=== PATIENT | female | born 1950 | race Caucasian/White ===

== ENCOUNTER 2017-02-06 10:15 | Inpatient (IN) | payer MEDICARE ==
[~2017-02-06] VITALS: Ht 167.6 cm; Wt 70.3 kg
[2017-02-06] MEDS ORDERED: Ipratropium 0.02% Inh Soln 2.5ml UD HHN ONE (10:45)
[2017-02-06] MEDS ORDERED: Albuterol ud Inhalation HHN ONE (10:45)
[2017-02-06 10:56] VITALS: BP 121/79
--- NOTE | 2017-02-06 11:47 | Diagnostic Imaging Report ---
Indication: Dyspnea Comparison: None A single view chest radiograph was obtained. Findings: There is a right chest port present. The tip is within the SVC. Heart size is normal. There are interstitial and other ill-defined opacities within the lungs bilaterally especially in the upper lobes nonspecific in nature. There are no prior studies for comparison. The possibility of pneumonia is not excluded involving the upper lobes. Bones are osteopenic. Impression: Acuity indeterminate ill-defined densities within the upper lobes. Findings could represent some ill-defined scarring of the lungs. Possibility of pneumonia not excluded. Please correlate clinically. Right chest port noted in good position.
[2017-02-06 11:49] LABS: BASOPHILS % (AUTO) 0.5 % (0.0-2.0); EOSINOPHILS % (AUTO) 3.8 % (0.0-3.0); LYMPHOCYTES % (AUTO) 8.6 % (20.0-45.0); MEAN CORPUSCULAR HEMOGLOBIN 31.4 PG (27.0-31.0); MEAN CORPUSCULAR HGB CONC 32.7 G/DL (32.0-36.0); MEAN CORPUSCULAR VOLUME 96 FL (80-99); MEAN PLATELET VOLUME 4.7 FL (6.5-10.1); MONOCYTES % (AUTO) 6.4 % (1.0-10.0); NEUTROPHILS % (AUTO) 80.8 % (45.0-75.0); PLATELET COUNT 388 K/UL (150-450); RED CELL DISTRIBUTION WIDTH 11.6 % (11.6-14.8); WHITE BLOOD COUNT 6.3 K/UL (4.8-10.8)
[2017-02-06 11:58] LABS: ALANINE AMINOTRANSFERASE 24 U/L (3-33); ALBUMIN/GLOBULIN RATIO 0.9 (1.0-2.7); ANION GAP 12 (5-15); ASPARTATE AMINO TRANSFERASE 15 U/L (5-40); CALCIUM 9.7 mg/dL (8.6-10.2); CARBON DIOXIDE 26 mEQ/L (20-30); CHLORIDE 97 mEQ/L (98-107); CREATININE 1.1 mg/dL (0.5-0.9); GLOMERULAR FILTRATION RATE 49.9 mL/min (>60); HEMOLYSIS 1; POTASSIUM 3.8 mEQ/L (3.4-4.9); PROTHROMBIN TIME 10.7 SEC (9.30-11.50); SODIUM 135 mEQ/L (135-145); TOTAL PROTEIN 6.7 g/dL (6.6-8.7)
[2017-02-06] MEDS ORDERED: BENICAR HCT 401 EACH ORAL (12:10)
[2017-02-06] MEDS ORDERED: ABILIFY10 MG ORAL (12:13)
[2017-02-06] MEDS ORDERED: PREMARIN VAG CR45 GM PV (12:13)
[2017-02-06] MEDS ORDERED: HYDROCHLOROTHIA25 MG ORAL (12:13)
[2017-02-06] MEDS ORDERED: LAMICTAL200 MG ORAL (12:13)
[2017-02-06] MEDS ORDERED: LEVAQUIN250 M1 ORAL (12:13)
[2017-02-06] MEDS ORDERED: cefTRIAXone 1 GM in NS 55 ML IVPB ONE (12:15)
[2017-02-06] MEDS ORDERED: Azithromycin 500 MG in D5W 275 ML IVPB ONE (12:15)
[2017-02-06 13:05] VITALS: BP 109/71
[2017-02-06 13:22] LABS: APPEARANCE,URINE CLEAR; KETONES,URINE NEGATIVE (NEGATIVE); LEUKOCYTE ESTERASE ,URINE NEGATIVE (NEGATIVE); NITRITE,URINE NEGATIVE (NEGATIVE); PH,URINE 7 (4.5-8.0); PROTEIN,URINE NEGATIVE (NEGATIVE); UROBILINOGEN,URINE NORMAL MG/DL (0.0-1.0)
--- NOTE | 2017-02-06 13:48 | History & Physical ---
History and Physical History & Physicial dict pneumonia metastatic ovarian cancer - s/p surg, chemo, in remission HTN CAD - not symptomatic Depression ID consult CT chest Abx MU MONAHAN Feb 06, 2017 13:48
[2017-02-06] MEDS ORDERED: Azithromycin 500mg Inj IV ONE (14:23)
[2017-02-06 14:40] VITALS: BP 106/63
--- NOTE | 2017-02-06 14:59 | Diagnostic Imaging Report ---
Indication: Chest pain Technique: Continuous helical transaxial imaging of the chest was obtained from the thoracic inlet to the upper abdomen. High-resolution reconstructions were also performed. No intravenous contrast was administered. Coronal 2-D reformats were also obtained. Total Dose length Product (DLP): [address] Dose Index Volume (CTDIvol): 0.15, 21.4 mGy Comparison: none Findings: Ill-defined infiltrates are present within the upper lobes suspicious for pneumonia. There is no interstitial fibrosis per se. There are some mild reticular densities at the lung bases nonspecific in nature. This could represent mild subsegmental atelectasis which is probably most likely. No pleural effusions are seen. There is no lymphadenopathy identified. There is a right chest port present. The tip terminates within the SVC in good position. Consultation of aorta and coronary calcifications are also noted. Visualized part of the upper abdomen is unremarkable. Impression: Patchy upper lobe infiltrates. Consider pneumonia. No interstitial fibrosis demonstrated. Mild atherosclerotic vascular disease Right chest port in good position The CT scanner at [facility] is accredited by the [employer] and the scans are performed using dose optimization techniques as appropriate to a performed exam including Automatic Exposure control.
--- NOTE | 2017-02-06 15:04 | Emergency Room Report ---
History of Present Illness General Chief Complaint: Dyspnea/Respdistress Source: Patient Present Illness HPI The patient presents with history of pneumonia. She's been treated with 3 different antibiotics. It was Biaxin 1 was [place] is Levaquin. She still has a cough. They consider the possibility of tuberculosis however no Gold test was performed. The cough is nonproductive or minimally productive with clear phlegm. She denies any night sweats. She has some weakness. She does get out of breath easily. She denies cardiac problems. She had a CT scan of her chest done 3 days ago at her private doctor's office. She's got a CT however she only brought chest x-ray. The patient has metastatic ovarian cancer. She is anxious about chronicity of cough. Allergies: Coded Allergies: No Known Allergies (Unverified , 02/06/17) Patient History Past Medical History: see triage record Past Surgical History: other - portacath, MINE PATROL surg Social History: Denies: smoking Social History Narrative at home Reviewed Nursing Documentation: PMH: Agreed, PSxH: Agreed Nursing Documentation-PMH Past Medical History: No History, Except For Hx Cardiac Problems: No - OVARIAN CANCER ,PNA,DEPRESSION Hx Hypertension: Yes Review of Systems All Other Systems: negative except mentioned in HPI Physical Exam Vital Signs Date Time Temp Pulse Resp B/P (MAP) Pulse Ox O2 Delivery O2 Flow Rate FiO2 02/06/17 10:21 98.2 91 18 132/82 98 Room Air 02/06/17 11:33 98 02/06/17 13:05 2.0 Sp02 EP Interpretation: reviewed, normal General Appearance: no apparent distress, alert, GCS 15, non-toxic, Chronically Ill Head: normocephalic Eyes: bilateral eye PERRL, bilateral eye conjunctivae pale ENT: moist mucus membranes Neck: supple Respiratory: lungs clear, normal breath sounds, other - portacath R, some paroxysms of coughing Cardiovascular #1: regular rate, rhythm, edema Cardiovascular #2: 2+ radial (R) Gastrointestinal: normal inspection, normal bowel sounds, non tender, no mass, non-distended Musculoskeletal: back normal, gait/station normal, normal range of motion, no calf tenderness Neurologic: alert, oriented x3, grossly normal Psychiatric: anxious Skin: warm/dry, other - sallo Medical Decision Making Diagnostic Impression: Primary Impression: Pneumonia Qualified Codes: J18.9 - Pneumonia, unspecified organism Additional Impressions: Dyspnea Qualified Codes: R06.00 - Dyspnea, unspecified Bronchospasm Eosinophilia ER Course Patient presents with persistent cough post antibiotic treatment. Ddx: TB, persistent pneumonia, resistant organism, bordatella, occult CHF, allergic process, bronchospasm, PE, metastatic disease, other atypical pneumonias amongst others. She is dyspneic and feels weak. Evaluation to exclude cardiac cause is paramount. Also, need to check CXR and labs. Patient will be given IV hydration and beta agents. Patient somewhat improved with beta agents. CXR diffuse increase. EKG unremarkable. Labs with normal WBC, but eosinophilia. Mild renal insufficiency. Treated with codiene. Patient still with dyspnea with minimal exertion and paroxysms of cough. Admit med Dr. Kaur. Laboratory Tests Test 02/06/17 11:30 02/06/17 13:00 02/06/17 17:35 02/07/17 00:00 White Blood Count 6.3 K/UL (4.8-10.8) Red Blood Count 3.80 M/UL (4.20-5.40) L Hemoglobin 12.0 G/DL (12.0-16.0) Hematocrit 36.6 % (37.0-47.0) L Mean Corpuscular Volume 96 FL (80-99) Mean Corpuscular Hemoglobin 31.4 PG (27.0-31.0) H Mean Corpuscular Hemoglobin Concent 32.7 G/DL (32.0-36.0) Red Cell Distribution Width 11.6 % (11.6-14.8) Platelet Count 388 K/UL (150-450) Mean Platelet Volume 4.7 FL (6.5-10.1) L Neutrophils (%) (Auto) 80.8 % (45.0-75.0) H Lymphocytes (%) (Auto) 8.6 % (20.0-45.0) L Monocytes (%) (Auto) 6.4 % (1.0-10.0) Eosinophils (%) (Auto) 3.8 % (0.0-3.0) H Basophils (%) (Auto) 0.5 % (0.0-2.0) Prothrombin Time 10.7 SEC (9.30-11.50) Prothrombin Time INR 1.0 (0.9-1.1) PTT 32 SEC (23-33) Sodium Level 135 mEQ/L (135-145) Potassium Level 3.8 mEQ/L (3.4-4.9) Chloride Level 97 mEQ/L (98-107) L Carbon Dioxide Level 26 mEQ/L (20-30) Anion Gap 12 (5-15) Blood Urea Nitrogen 14 mg/dL (7-23) Creatinine 1.1 mg/dL (0.5-0.9) H Estimate Glomerular Filtration Rate 49.9 mL/min (>60) Glucose Level 110 mg/dL (74-106) H Calcium Level 9.7 mg/dL (8.6-10.2) Total Bilirubin < 0.2 mg/dL (0.0-1.2) Aspartate Amino Transferase (AST) 15 U/L (5-40) Alanine Aminotransferase (ALT) 24 U/L (3-33) Alkaline Phosphatase 130 U/L (35-104) H Total Creatine Kinase 53 U/L (26-140) Pro-B-Type Natriuretic Peptide 411 pg/mL (0-125) H Total Protein 6.7 g/dL (6.6-8.7) Albumin 3.2 g/dL (3.5-5.2) L Globulin 3.5 g/dL Albumin/Globulin Ratio 0.9 (1.0-2.7) L Urine Color Pale yellow Urine Appearance Clear Urine pH 7 (4.5-8.0) Urine Specific [place] 1.015 (1.005-1.035) Urine Protein Negative (NEGATIVE) Urine Glucose (UA) Negative (NEGATIVE) Urine Ketones Negative (NEGATIVE) Urine Occult Blood Negative (NEGATIVE) Urine Nitrite Negative (NEGATIVE) Urine Bilirubin Negative (NEGATIVE) Urine Urobilinogen Normal MG/DL (0.0-1.0) Urine Leukocyte Esterase Negative (NEGATIVE) Coccidioides Antibody (Comp Fix) Pending Cryptococcus Antigen Pending Calcium (Send out) Pending Parathyroid Hormone (Intact) Pending Test 02/07/17 06:05 White Blood Count 9.8 K/UL (4.8-10.8) # Red Blood Count 2.54 M/UL (4.20-5.40) L Hemoglobin 8.2 G/DL (12.0-16.0) #L Hematocrit 24.0 % (37.0-47.0) #L Mean Corpuscular Volume 95 FL (80-99) Mean Corpuscular Hemoglobin 32.2 PG (27.0-31.0) H Mean Corpuscular Hemoglobin Concent 34.1 G/DL (32.0-36.0) Red Cell Distribution Width 11.5 % (11.6-14.8) L Platelet Count 475 K/UL (150-450) H Mean Platelet Volume 4.8 FL (6.5-10.1) L Neutrophils (%) (Auto) 77.5 % (45.0-75.0) H Lymphocytes (%) (Auto) 10.7 % (20.0-45.0) L Monocytes (%) (Auto) 7.3 % (1.0-10.0) Eosinophils (%) (Auto) 3.8 % (0.0-3.0) H Basophils (%) (Auto) 0.6 % (0.0-2.0) Sodium Level 133 mEQ/L (135-145) L Potassium Level 3.8 mEQ/L (3.4-4.9) Chloride Level 96 mEQ/L (98-107) L Carbon Dioxide Level 24 mEQ/L (20-30) Anion Gap 13 (5-15) Blood Urea Nitrogen 14 mg/dL (7-23) Creatinine 1.2 mg/dL (0.5-0.9) H Estimate Glomerular Filtration Rate 45.1 mL/min (>60) Glucose Level 121 mg/dL (74-106) H Calcium Level 9.3 mg/dL (8.6-10.2) Iron Level 20 ug/dL (37-145) L Total Iron Binding Capacity 165 ug/dL (250-400) L Percent Iron Saturation 12 % (15-50) L Unsaturated Iron Binding 145 ug/dL (112-346) Ferritin 1129 ng/mL (13-150) H Total Bilirubin < 0.2 mg/dL (0.0-1.2) Aspartate Amino Transferase (AST) 19 U/L (5-40) Alanine Aminotransferase (ALT) 25 U/L (3-33) Alkaline Phosphatase 134 U/L (35-104) H Total Protein 6.0 g/dL (6.6-8.7) L Albumin 2.8 g/dL (3.5-5.2) L Globulin 3.2 g/dL Albumin/Globulin Ratio 0.8 (1.0-2.7) L Triglycerides Level 105 mg/dL (< 150) Cholesterol Level 133 mg/dL (< 200) LDL Cholesterol 79 mg/dL (60-99) HDL Cholesterol 33 mg/dL (> 60) Cholesterol/HDL Ratio 4.0 (3.3-4.4) Thyroid Stimulating Hormone (TSH) 3.120 uIU/mL (0.300-4.500) EKG Diagnostic Results Rate: normal Rhythm: NSR ST Segments: no acute changes Rhythm Strip Diag. Results EP Interpretation: yes Rhythm: NSR, no PVC's, no ectopy Status: improved Disposition: ADMITTED INPATIENT Condition: Serious Referrals: Scott Perry MD (PCP) Brian Rodriguez M.D. Feb 06, 2017 15:04
[2017-02-06] MEDS ORDERED: Azithromycin 250mg tab ORAL ONE (15:45)
[2017-02-06 15:53] VITALS: BP 108/70
--- NOTE | 2017-02-06 16:24 | Infectious Diseases Prog Note ---
Assessment/Plan Assessment/Plan Full consult dictated: A) 1) pna - ? etiology, ? bacterial, ? fungal, ? tuberculosis, ? other 2) imaging noted 3) hx ovarian ca, s/p chemo and surgery 4) htn, ? hx latent TB, s/p inh for one year, s/p BCG vaccine P) 1) vancomycin, zosyn and azithromycin 2) check sputum, serology, t-spot, labs, f/u chest x-ray 3) may need bronchoscopy 4) thank you Subjective Allergies: Coded Allergies: No Known Allergies (Unverified , 02/06/17) Objective Vital Signs Last 24 Hour Vital Signs Date Time Temp Pulse Resp B/P (MAP) Pulse Ox O2 Delivery O2 Flow Rate FiO2 02/06/17 15:53 97.7 80 19 108/70 97 Room Air 02/06/17 14:40 98.2 69 11 106/63 99 Room Air 75 02/06/17 14:40 98.2 69 11 106/63 99 Room Air 75 02/06/17 13:05 98.2 88 15 109/71 99 Room Air 2.0 100 75 02/06/17 11:33 91 12 Room Air 98 02/06/17 10:56 98.2 88 9 121/79 98 Room Air 02/06/17 10:21 98.2 91 18 132/82 98 Room Air Height (Feet): 5 Height (Inches): 6.00 Weight (Pounds): 155 Laboratory Tests Test 02/06/17 11:30 02/06/17 13:00 White Blood Count 6.3 K/UL (4.8-10.8) Red Blood Count 3.80 M/UL (4.20-5.40) L Hemoglobin 12.0 G/DL (12.0-16.0) Hematocrit 36.6 % (37.0-47.0) L Mean Corpuscular Volume 96 FL (80-99) Mean Corpuscular Hemoglobin 31.4 PG (27.0-31.0) H Mean Corpuscular Hemoglobin Concent 32.7 G/DL (32.0-36.0) Red Cell Distribution Width 11.6 % (11.6-14.8) Platelet Count 388 K/UL (150-450) Mean Platelet Volume 4.7 FL (6.5-10.1) L Neutrophils (%) (Auto) 80.8 % (45.0-75.0) H Lymphocytes (%) (Auto) 8.6 % (20.0-45.0) L Monocytes (%) (Auto) 6.4 % (1.0-10.0) Eosinophils (%) (Auto) 3.8 % (0.0-3.0) H Basophils (%) (Auto) 0.5 % (0.0-2.0) Prothrombin Time 10.7 SEC (9.30-11.50) Prothromb Time International Ratio 1.0 (0.9-1.1) Activated Partial Thromboplast Time 32 SEC (23-33) Sodium Level 135 mEQ/L (135-145) Potassium Level 3.8 mEQ/L (3.4-4.9) Chloride Level 97 mEQ/L (98-107) L Carbon Dioxide Level 26 mEQ/L (20-30) Anion Gap 12 (5-15) Blood Urea Nitrogen 14 mg/dL (7-23) Creatinine 1.1 mg/dL (0.5-0.9) H Estimat Glomerular Filtration Rate 49.9 mL/min (>60) Glucose Level 110 mg/dL (74-106) H Calcium Level 9.7 mg/dL (8.6-10.2) Total Bilirubin < 0.2 mg/dL (0.0-1.2) Aspartate Amino Transf (AST/SGOT) 15 U/L (5-40) Alanine Aminotransferase (ALT/SGPT) 24 U/L (3-33) Alkaline Phosphatase 130 U/L (35-104) H Total Creatine Kinase 53 U/L (26-140) Pro-B-Type Natriuretic Peptide 411 pg/mL (0-125) H Total Protein 6.7 g/dL (6.6-8.7) Albumin 3.2 g/dL (3.5-5.2) L Globulin 3.5 g/dL Albumin/Globulin Ratio 0.9 (1.0-2.7) L Urine Color Pale yellow Urine Appearance Clear Urine pH 7 (4.5-8.0) Urine Specific [place] 1.015 (1.005-1.035) Urine Protein Negative (NEGATIVE) Urine Glucose (UA) Negative (NEGATIVE) Urine Ketones Negative (NEGATIVE) Urine Occult Blood Negative (NEGATIVE) Urine Nitrite Negative (NEGATIVE) Urine Bilirubin Negative (NEGATIVE) Urine Urobilinogen Normal MG/DL (0.0-1.0) Urine Leukocyte Esterase Negative (NEGATIVE) Current Medications Medications (Trade) Dose Ordered Sig/Ki Route PRN Reason Start Time Stop Time Status Last Admin Dose Admin Albuterol/ Ipratropium (DuoNeb 0.5-3(2.5)mg/3ml) 3 ml Q6HRT HHN 02/06/17 19:00 02/11/17 18:59 Aripiprazole (Abilify) 10 mg DAILY ORAL 02/07/17 09:00 03/09/17 08:59 Azithromycin (Zithromax) 250 mg DAILY ORAL 02/07/17 09:00 02/14/17 08:59 Hydrochlorothiazide (Hydrodiuril) 25 mg DAILY ORAL 02/07/17 09:00 03/09/17 08:59 Lamotrigine (LaMICtal) 200 mg Q12HR ORAL 02/06/17 21:00 03/08/17 20:59 Losartan Potassium (Cozaar) 100 mg DAILY ORAL 02/07/17 09:00 03/09/17 08:59 Piperacillin Sod/ Tazobactam Sod 3.375 gm/Dextrose 100 ml @ 25 mls/hr EVERY 8 HOURS IVPB 02/06/17 17:00 02/11/17 16:59 Vancomycin HCl (Vanco rx to dose) 1 ea DAILY PRN MISC Per rx protocol 02/06/17 15:45 03/08/17 15:44 AKILAH LO Feb 06, 2017 16:24
[2017-02-06] MEDS ORDERED: Vancomycin 1250mg/D5W 250ml IVPB ONE (18:00)
[2017-02-06] MEDS: DuoNeb 0.5-3(2.5)mg/3ml neb HHN SCH (19:12)
[2017-02-06 20:02] VITALS: BP 115/90
--- NOTE | 2017-02-06 23:00 | History and Physical Report ---
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 She is not producing sputum. She has no chest pain or shortness of breath. She has no hemoptysis. She has developed fever and chills each night for the past two nights, which began while she was already on oral antibiotics. She has taken Biaxin for a few days, Cipro for a few days, and Levaquin for the past two days without benefit. She had pneumonia a few times in her younger years, but not for at least 15 or 20 years. She does not smoke. 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 PAST MEDICAL HISTORY: Hypertension, depression, metastatic ovarian cancer status post radical hysterectomy and chemotherapy, currently in remission on PET and CT scan done in the past month. She has a history of coronary calcium score 400 consistent with moderate coronary artery disease, but no symptoms. MEDICATIONS: Abilify, Premarin cream, hydrochlorothiazide, Lamictal, Levaquin, Benicar, and HCT. ALLERGIES: None. SOCIAL HISTORY: She does not smoke or drink. She is from her . She has one child. 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 REVIEW OF SYSTEMS: Otherwise unremarkable. PHYSICAL EXAMINATION: GENERAL: The patient is alert and responds appropriately. She appears well developed and well nourished. VITAL SIGNS: Show no high fever. The blood pressure, pulse, and respirations are normal. Saturation is 98% to 99% on two liters. HEENT: Head is normocephalic. NECK: No jugular venous distention. Lymph nodes are not enlarged. CHEST: Fairly clear. CARDIAC: Rhythm is regular. ABDOMEN: Soft and nontender. There is a Port-A-Cath in the right subclavian vein. There is a lower abdominal scar and a right upper quadrant scar. There is no tenderness or mass. There is a large ventral hernia. EXTREMITIES: No clubbing, cyanosis, or edema. LABORATORY STUDIES: Show normal urine and normal coagulation parameters. Chemistry shows creatinine is 1.1. Glucose 110. Alkaline phosphatase is 130. ProBNP 411. Albumin 3.2. White count 6300, hemoglobin 12, and platelets normal. Chest x-rays reviewed and shows evidence of increased markings, possibly chronic or acute, possibly interstitial. IMPRESSION: 1. Pneumonia with cough and fever and abnormal chest x-ray. 2. Status post radical hysterectomy and chemotherapy for metastatic ovarian cancer, currently in remission. 3. Hypertension. 4. Coronary heart disease, asymptomatic. 5. Depression, controlled on medication. PLAN: The patient will have an Infectious Disease consultation. We will give intravenous antibiotics, oxygen, respiratory treatments, and get a high-resolution CT scan of the chest. Guru Kaur M.D. DR: Jessica JOB#: [id number] CC: Guru Kaur M.D.; Fax#: [phone] Torres M.D. ; Fax#: [phone] Perry M.D.; Fax#: [phone]
[2017-02-06 23:35] VITALS: BP 102/68
--- NOTE | 2017-02-07 | Consultation ---
DATE OF CONSULTATION: 02/06/2017 INFECTIOUS DISEASE CONSULTATION CONSULTING PHYSICIAN: Jemma Torres M.D. ATTENDING PHYSICIAN: Guru Kaur M.D. REASON FOR CONSULTATION: Pneumonia. CHIEF COMPLAINT: The patient's chief complaint coming in to the hospital is pneumonia. HISTORY OF PRESENT ILLNESS: This is a very pleasant 66-year-old female, who has a history of ovarian cancer, status post surgery and chemotherapy, the last one she told me was in, I believe June she mentioned. The patient over the last week has been having a dry cough that is progressively getting worse. No hemoptysis. She does have night sweats. No fever or chills, but she did not take a temperature at home. The patient said she was on a trial of antibiotics, but only took a couple of days of each one, which included Levaquin, Cipro, and Biaxin. The patient presents to [facility] with progressive respiratory symptoms and chest imaging studies here at [place] in the ER showed she had ill-defined densities in the upper lobes. A CT scan was done of the chest, which suggested patchy upper lobe infiltrates, considered pneumonia. In discussion with the patient, she also has generalized weakness. She is not eating well and might have some weight loss over the past week also. Infectious Disease consultation is requested for antibiotic management in this patient. In the emergency room, she was given Rocephin and azithromycin. PAST MEDICAL HISTORY: As we discussed earlier, the patient has a past medical history of metastatic ovarian cancer, status post surgery and chemotherapy. She is in remission per the records. She has a history of hypertension and coronary artery disease, not symptomatic. She has a history of depression. She has a history of diagnosed latent tuberculosis with I believe a positive skin test, but she did have BCG vaccine. She was given one year of INH for that. MEDICATIONS: Upon reviewing the MAR, the patient is on the following medications. She is on Abilify. She is on hydrochlorothiazide, Cozaar, azithromycin, Lamictal, and DuoNeb. I put her on Zosyn and vancomycin. She was given Rocephin and azithromycin. Please see medications in the medical order and outside medications were noted and reconciliated. ALLERGIES: She has no known drug allergies. SOCIAL HISTORY: Negative for smoking, alcohol, or drug abuse. 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 Of note, she also [place] in [place]. FAMILY HISTORY: Noncontributory. No mention of family members that have tuberculosis. She did, however, got a BCG vaccine when she was in [place] when she was younger. REVIEW OF SYSTEMS: Constitutional: She has generalized weakness and fatigue. She said she had night sweats. She did not take her temperatures at home. She has no fevers at this time. No chills. Head And Neck: No thrush, dysphagia, or sinus tenderness. Cardiac: No chest pain or palpitations. Gastrointestinal: No nausea, vomiting, or diarrhea. Genitourinary: No dysuria or frequency. No CVA tenderness. Pulmonary: She has a dry cough and some congestion and may be some shortness of breath, nothing significant. No severe shortness of breath and no secretions or hemoptysis. Skin: No maculopapular rash or itching. Extremities: No extremity pain. Neurological: No seizures. PHYSICAL EXAMINATION: VITAL SIGNS: Temperature 97.7 degrees, pulse rate 80, respiratory rate 19, blood pressure 108/70, and saturation 97%. GENERAL: Alert, responsive, in no acute distress, and oriented x3. HEAD AND NECK: Oral exam, no thrush. Eye exam, no icterus. Normocephalic. No facial droop. No neck stiffness. Neck is supple. HEART: Regular. No gallop or murmur. No friction rub. LUNGS: I hear bilateral coarse breath sounds. No obvious rales or crackles. ABDOMEN: Soft. Positive bowel sounds. Nontender. SKIN: No rash or dermatitis. MUSCULOSKELETAL: No effusion or contractures. Legs are without cellulitis. PERIPHERAL VASCULAR: No cyanosis or gangrene. GENITOURINARY: No Wallace. LINES: Line sites without phlebitis. NEUROLOGIC: Intact. Nonfocal exam. Alert and oriented x3. LABORATORY AND DIAGNOSTIC DATA: Laboratory data is as follows: White count 6.3, hemoglobin 12.0, and platelet count is 388,000. Creatinine is 1.1. LFTs were noted. Albumin 3.2, which is low. Sputum culture has been ordered. Serology has been ordered also. As I discussed, CT scan of the chest showed patchy upper lobe infiltrates consistent with pneumonia. ASSESSMENT AND PLAN: 1. The patient has what looks like pneumonia at this time. Her presentations over a week are progressively getting worse. She has had courses of Levaquin, Cipro, and Biaxin. Because of this, I will broaden her antimicrobial coverage for bacterial infection with regards to Zosyn and vancomycin. She has already also been given azithromycin. We will continue this and check sputum culture. We will also check serology for cocci, the QuantiFERON TB test, we have T-spot here. Legionella and mycoplasma serology and cocci serology. Continue antibiotics and get sputum culture. If the patient does not improve or if the infiltrates progress, I would consider bronchoscopy to evaluate the etiology of these infiltrates and pneumonia. I will discuss this with Dr. Guru Kaur. Case was discussed with RN and also with the patient and questions were answered. Continue antibiotics at this time vancomycin and Zosyn and as discussed azithromycin has been given and check a follow up on the serology cultures and follow up chest x-ray and labs. Watch creatinine closely on vancomycin. 2. History of presumptive latent tuberculosis, status post INH x1 year per the patient. 3. The patient [place]. 4. Hypertension. 5. Asymptomatic coronary artery disease. 6. Ovarian cancer with metastasis, status post chemotherapy and surgery, in remission. 7. Mildly elevated creatinine. 8. Depression. 9. No known allergies. 10. Social history is negative. 11. MAR was noted. 12. Case was discussed with RN. 13. Family history is noncontributory. 14. History of BCG vaccine. 15. Records were noted. 16. Continue treatment per Dr. Kaur. Jemma Torres M.D. DR: GLADYS JOB#: [id number] CC:
[2017-02-07] MEDS: DuoNeb 0.5-3(2.5)mg/3ml neb HHN SCH ×4 (01:20→19:59)
[2017-02-07 04:00] VITALS: BP 111/66
[2017-02-07 07:00] LABS: BASOPHILS % (AUTO) 0.6 % (0.0-2.0); EOSINOPHILS % (AUTO) 3.8 % (0.0-3.0); LYMPHOCYTES % (AUTO) 10.7 % (20.0-45.0); MEAN CORPUSCULAR HEMOGLOBIN 32.2 PG (27.0-31.0); MEAN CORPUSCULAR HGB CONC 34.1 G/DL (32.0-36.0); MEAN CORPUSCULAR VOLUME 95 FL (80-99); MEAN PLATELET VOLUME 4.8 FL (6.5-10.1); MONOCYTES % (AUTO) 7.3 % (1.0-10.0); NEUTROPHILS % (AUTO) 77.5 % (45.0-75.0); PLATELET COUNT 475 K/UL (150-450); RED BLOOD COUNT 2.54 M/UL (4.20-5.40); RED CELL DISTRIBUTION WIDTH 11.5 % (11.6-14.8); WHITE BLOOD COUNT 9.8 K/UL (4.8-10.8)
[2017-02-07 07:10] LABS: ALANINE AMINOTRANSFERASE 25 U/L (3-33); ALBUMIN/GLOBULIN RATIO 0.8 (1.0-2.7); ANION GAP 13 (5-15); ASPARTATE AMINO TRANSFERASE 19 U/L (5-40); CALCIUM 9.3 mg/dL (8.6-10.2); CARBON DIOXIDE 24 mEQ/L (20-30); CHLORIDE 96 mEQ/L (98-107); CHOLESTEROL 133 mg/dL (< 200); CREATININE 1.2 mg/dL (0.5-0.9); GLOMERULAR FILTRATION RATE 45.1 mL/min (>60); HEMOLYSIS 0; LDL CHOLESTEROL (CALC.) 79 mg/dL (60-99); POTASSIUM 3.8 mEQ/L (3.4-4.9); SODIUM 133 mEQ/L (135-145)
[2017-02-07 08:00] VITALS: BP 102/65
[2017-02-07 08:20] VITALS: BP 102/65
[2017-02-07] MEDS: Losartan 50mg tab ORAL SCH (09:00)
[2017-02-07] MEDS: Azithromycin 250mg tab ORAL SCH (09:00)
[2017-02-07] MEDS: ARIPiprazole 10mg tab ORAL SCH ×2 (09:00→13:02)
[2017-02-07] MEDS ORDERED: Tubing IV Secondary IV ONE (09:44)
[2017-02-07] MEDS ORDERED: NS 275ml ONE (09:44)
[2017-02-07 12:00] VITALS: BP 104/67
[2017-02-07 13:21] LABS: HEMOLYSIS 9; IRON 20 ug/dL (37-145); TOTAL IRON BINDING CAPACITY 165 ug/dL (250-400)
[2017-02-07 13:31] LABS: FERRITIN 1129 ng/mL (13-150)
[2017-02-07 16:00] VITALS: BP 117/74
[2017-02-07] MEDS ORDERED: Vancomycin 1gm in D5W 275ml IVPB SCH (18:00)
[2017-02-07] MEDS ORDERED: guaiFENesin w/Codeine 5ml Liq ud ORAL PRN (18:30)
[2017-02-07 20:06] VITALS: BP 115/75
--- NOTE | 2017-02-07 21:18 | Pulmonology Progress Note ---
Assessment/Plan Assessment/Plan 1. Pneumonia with cough and fever and abnormal chest x-ray. 2. Status post radical hysterectomy and chemotherapy for metastatic ovarian cancer, currently in remission. 3. Hypertension. 4. Coronary heart disease, asymptomatic. 5. Depression, controlled on medication. continue abx recheck am labs prbc if cont to decline o2 ivf pain meds antitussives Subjective Constitutional: Reports: no symptoms HEENT: Repors: no symptoms Respiratory: Reports: dry cough Cardiovascular: Reports: no symptoms Genitourinary: Reports: no symptoms Psychiatric: Reports: no symptoms Allergies: Coded Allergies: No Known Allergies (Unverified , 02/06/17) Subjective complains of noproductive cough on abx concerned they are not working no fever at thsi time on ra stable Objective Last 24 Hour Vital Signs Date Time Temp Pulse Resp B/P (MAP) Pulse Ox O2 Delivery O2 Flow Rate FiO2 02/07/17 20:15 74 18 97 Room Air 02/07/17 20:06 98.1 77 19 115/75 97 Room Air 02/07/17 20:02 73 18 96 Room Air 2.0 02/07/17 16:00 97.8 76 17 117/74 96 Room Air 02/07/17 14:11 76 18 96 Room Air 02/07/17 14:05 72 16 96 Room Air 02/07/17 12:00 97.5 76 17 104/67 95 Room Air 02/07/17 08:20 97.8 93 20 102/65 94 Room Air 02/07/17 08:00 97.8 93 19 102/65 94 Room Air 02/07/17 07:13 72 18 100 Room Air 02/07/17 07:05 93 18 95 Room Air 02/07/17 04:00 98.0 65 20 111/66 90 Room Air 02/07/17 01:28 82 16 99 Room Air 02/07/17 01:22 72 16 97 Room Air 02/06/17 23:35 98.5 83 20 102/68 96 Room Air Intake and Output 02/07/17 02/08/17 19:00 07:00 Intake Total 675 ml 367.416 ml Balance 675 ml 367.416 ml Intake Oral 575 ml IV Total 100 ml 367.416 ml # Voids 3 General Appearance: WD/WN HEENT: atraumatic Respiratory/Chest: lungs clear Cardiovascular: normal rate, regularly irregular Abdomen: soft, non tender, other - ventral hernia Extremities: no cyanosis Skin: no lesions Laboratory Tests 02/07/17 00:00: Calcium (Send out) [Pending], Parathyroid Hormone (Intact) [Pending] 02/07/17 06:05: White Blood Count 9.8#, Red Blood Count 2.54L, Hemoglobin 8.2#L, Hematocrit 24.0 #L, Mean Corpuscular Volume 95, Mean Corpuscular Hemoglobin 32.2H, Mean Corpuscular Hemoglobin Concent 34.1, Red Cell Distribution Width 11.5L, Platelet Count 475H, Mean Platelet Volume 4.8L, Neutrophils (%) (Auto) 77.5H, Lymphocytes (%) (Auto) 10.7L, Monocytes (%) (Auto) 7.3, Eosinophils (%) (Auto) 3.8H, Basophils (%) (Auto) 0.6, Sodium Level 133L, Potassium Level 3.8, Chloride Level 96L, Carbon Dioxide Level 24, Anion Gap 13, Blood Urea Nitrogen 14, Creatinine 1.2H, Estimat Glomerular Filtration Rate 45.1, Glucose Level 121H , Calcium Level 9.3, Iron Level 20L, Total Iron Binding Capacity 165L, Percent Iron Saturation 12L, Unsaturated Iron Binding 145, Ferritin 1129H, Total Bilirubin < 0.2, Aspartate Amino Transf (AST/SGOT) 19, Alanine Aminotransferase (ALT/SGPT) 25, Alkaline Phosphatase 134H, Total Protein 6.0L, Albumin 2.8L, Globulin 3.2, Albumin/Globulin Ratio 0.8L, Triglycerides Level 105, Cholesterol Level 133, LDL Cholesterol 79, HDL Cholesterol 33, Cholesterol/HDL Ratio 4.0, Thyroid Stimulating Hormone (TSH) 3.120 Current Medications Medications (Trade) Dose Ordered Sig/Ki Route PRN Reason Start Time Stop Time Status Last Admin Dose Admin Albuterol/ Ipratropium (DuoNeb 0.5-3(2.5)mg/3ml) 3 ml Q6HRT HHN 02/06/17 19:00 02/11/17 18:59 02/07/17 19:59 Aripiprazole (Abilify) 10 mg DAILY ORAL 02/07/17 09:00 03/09/17 08:59 02/07/17 13:02 Azithromycin (Zithromax) 250 mg DAILY ORAL 02/07/17 09:00 02/14/17 08:59 02/07/17 09:00 Guaifenesin/ Codeine Phosphate (Robitussin with codeine) 5 ml Q4H PRN ORAL For Cough 02/07/17 18:30 03/09/17 18:29 02/07/17 18:53 Hydrochlorothiazide (Hydrodiuril) 25 mg DAILY ORAL 02/07/17 09:00 03/09/17 08:59 Iron Sucrose 100 mg/Sodium Chloride 60 ml @ 240 mls/hr BEDTIME IV 02/07/17 21:00 02/11/17 21:14 Losartan Potassium (Cozaar) 100 mg DAILY ORAL 02/07/17 09:00 03/09/17 08:59 Patient Own Medication (Patient's Own Med) 1 ea BEDTIME ORAL 02/07/17 18:00 03/09/17 17:59 UNV Patient Own Medication (Patient's Own Med) 1 ea DAILY ORAL 02/07/17 10:00 03/09/17 09:59 Patient Own Medication (Patient's Own Med) 1 ea DAILY ORAL 02/08/17 09:00 03/10/17 08:59 Patient Own Medication (Patient's Own Med) 2 ea QHS ORAL 02/07/17 21:00 03/09/17 20:59 Piperacillin Sod/ Tazobactam Sod 3.375 gm/Dextrose 100 ml @ 200 mls/hr Q6H IVPB 02/06/17 17:30 02/13/17 17:29 02/07/17 17:33 Vancomycin HCl (Vanco rx to dose) 1 ea DAILYPRN PRN MISC Per rx protocol 02/06/17 15:45 03/08/17 15:44 Vancomycin HCl 1 gm/Dextrose 275 ml @ 183.708 mls/hr Q24H IVPB 02/07/17 18:00 02/12/17 17:59 02/07/17 18:29 NAPOLEON RODRIGUEZ DO Feb 07, 2017 21:18
[2017-02-07] MEDS: Iron Sucrose 100 MG in NS 55 ML IV SCH (21:28)
[2017-02-07] MEDS: Promethazine/Codeine 5ml UD ORAL PRN (22:42)
[2017-02-08] VITALS (7 sets, daily range): BP systolic 84–130; BP diastolic 49–77
[2017-02-08] MEDS: DuoNeb 0.5-3(2.5)mg/3ml neb HHN SCH ×4 (00:14→19:57)
[2017-02-08 08:25] LABS: BASOPHILS % (AUTO) 0.7 % (0.0-2.0); EOSINOPHILS % (AUTO) 6.3 % (0.0-3.0); LYMPHOCYTES % (AUTO) 12.8 % (20.0-45.0); MEAN CORPUSCULAR HEMOGLOBIN 33.4 PG (27.0-31.0); MEAN CORPUSCULAR HGB CONC 34.8 G/DL (32.0-36.0); MEAN CORPUSCULAR VOLUME 96 FL (80-99); MEAN PLATELET VOLUME 4.9 FL (6.5-10.1); MONOCYTES % (AUTO) 6.5 % (1.0-10.0); NEUTROPHILS % (AUTO) 73.8 % (45.0-75.0); PLATELET COUNT 456 K/UL (150-450); RED BLOOD COUNT 2.62 M/UL (4.20-5.40); RED CELL DISTRIBUTION WIDTH 11.8 % (11.6-14.8); WHITE BLOOD COUNT 8.2 K/UL (4.8-10.8)
[2017-02-08 08:57] LABS: CALCIUM 9.4 mg/dL (8.6-10.2); CREATININE 1.3 mg/dL (0.5-0.9); GLOMERULAR FILTRATION RATE 41.1 mL/min (>60); POTASSIUM 4.4 mEQ/L (3.4-4.9)
[2017-02-08] MEDS: Losartan 50mg tab ORAL SCH (09:00)
[2017-02-08] MEDS: VYVANSE 70 MG ORAL SCH ×2 (09:00→10:42)
[2017-02-08] MEDS: Azithromycin 250mg tab ORAL SCH (09:53)
[2017-02-08] MEDS: ARIPiprazole 10mg tab ORAL SCH (09:54)
--- NOTE | 2017-02-08 15:04 | Infectious Diseases Prog Note ---
Assessment/Plan Assessment/Plan ASSESSMENT AND PLAN: 1. pna - ? etiology, ? cocci, ? cap, doubt mrsa or TB, elevated eosinophils on cbc diff., ? eosinophilic pna, ? other, hx of ovarian ca with mets - clinically without improvement - check serology and sputum culture if possible - change abx to zosyn, doxy, diflucan - may need bronchoscopy - d/w pulmonary medicine - Dr. Ramesh - check labs and chest x-ray, elevated creatinine noted 2. History of presumptive latent tuberculosis, status post INH x1 year per the patient. 3. [place] 4. Hypertension. 5. Asymptomatic coronary artery disease. 6. Ovarian cancer with metastasis, status post chemotherapy and surgery, in remission. 7. Mildly elevated creatinine. 8. Depression. 9. No known allergies. 10. Social history is negative. 11. MAR was noted. 12. Case was discussed with RN. 13. Family history is noncontributory. 14. History of BCG vaccine. 15. Records were noted. 16. Continue treatment per Dr. Kaur. Subjective Constitutional: Reports: fatigue, Denies: fever HEENT: Reports: congestion - mild Respiratory: Reports: shortness of breath - mild, dry cough - no improvement Cardiovascular: Denies: chest pain Gastrointestinal/Abdominal: Denies: nausea Genitourinary: Reports: other - no nguyen Neurologic: Denies: headache Psychiatric: Denies: depression Skin: Denies: rash Hematologic: Denies: bleeding Musculoskeletal: Denies: pain Allergies: Coded Allergies: No Known Allergies (Unverified , 02/06/17) Objective Vital Signs Last 24 Hour Vital Signs Date Time Temp Pulse Resp B/P (MAP) Pulse Ox O2 Delivery O2 Flow Rate FiO2 02/08/17 13:26 Room Air 02/08/17 13:25 Room Air 02/08/17 12:00 98.2 89 18 113/76 95 Room Air 02/08/17 09:00 84/51 02/08/17 08:00 98.2 77 16 84/51 92 Room Air 02/08/17 07:40 Room Air 02/08/17 07:39 Room Air 02/08/17 05:20 109/60 02/08/17 04:16 97.4 83 19 88/49 94 Room Air 02/08/17 00:13 Room Air 02/08/17 00:13 Room Air 02/08/17 00:03 97.9 80 18 110/68 97 Room Air 02/07/17 20:15 74 18 97 Room Air 21 02/07/17 20:06 98.1 77 19 115/75 97 Room Air 02/07/17 20:02 73 18 96 Room Air 2.0 21 02/07/17 16:00 97.8 76 17 117/74 96 Room Air Height (Feet): 5 Height (Inches): 6.00 Weight (Pounds): 155 General Appearance: no acute distress HEENT: normocephalic, atraumatic, anicteric, mucous membranes moist, EOMI, pharynx normal, supple, no JVD Respiratory/Chest: no respiratory distress, no accessory muscle use, respiratory distress, other - coarse breath sounds bilateral Cardiovascular: normal rate, regular rhythm, no gallop/murmur, no JVD Abdomen: normal bowel sounds, soft, non tender, no organomegaly, non distended Genitourinary: other - no nguyen Extremities: no cyanosis Skin: no rash 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 Findings could represent some ill-defined scarring of the lungs. Possibility of pneumonia not excluded. Please correlate clinically. Right chest port noted in good position. Ct scan of the Chest: CT Dose Index Volume (CTDIvol): 0.15, 21.4 mGy Comparison: none Findings: Ill-defined infiltrates are present within the upper lobes suspicious for pneumonia. There is no interstitial fibrosis per se. There are some mild reticular densities at the lung bases nonspecific in nature. This could represent mild subsegmental atelectasis which is probably most likely. No pleural effusions are seen. There is no lymphadenopathy identified. There is a right chest port present. The tip terminates within the SVC in good position. Consultation of aorta and coronary calcifications are also noted. Visualized part of the upper abdomen is unremarkable. Impression: Patchy upper lobe infiltrates. Consider pneumonia. No interstitial fibrosis demonstrated. Mild atherosclerotic vascular disease Right chest port in good position Microbiology Date/Time Source Procedure Growth Status 02/06/17 11:30 Blood Blood Culture - Preliminary NO GROWTH AFTER 24 HOURS Resulted 02/06/17 11:00 Blood Blood Culture - Preliminary NO GROWTH AFTER 24 HOURS Resulted Laboratory Tests Test 02/08/17 08:07 White Blood Count 8.2 K/UL (4.8-10.8) Red Blood Count 2.62 M/UL (4.20-5.40) L Hemoglobin 8.8 G/DL (12.0-16.0) L Hematocrit 25.2 % (37.0-47.0) L Mean Corpuscular Volume 96 FL (80-99) Mean Corpuscular Hemoglobin 33.4 PG (27.0-31.0) H Mean Corpuscular Hemoglobin Concent 34.8 G/DL (32.0-36.0) Red Cell Distribution Width 11.8 % (11.6-14.8) Platelet Count 456 K/UL (150-450) H Mean Platelet Volume 4.9 FL (6.5-10.1) L Neutrophils (%) (Auto) 73.8 % (45.0-75.0) Lymphocytes (%) (Auto) 12.8 % (20.0-45.0) L Monocytes (%) (Auto) 6.5 % (1.0-10.0) Eosinophils (%) (Auto) 6.3 % (0.0-3.0) H Basophils (%) (Auto) 0.7 % (0.0-2.0) Sodium Level 139 mEQ/L (135-145) Potassium Level 4.4 mEQ/L (3.4-4.9) Chloride Level 100 mEQ/L (98-107) Carbon Dioxide Level 27 mEQ/L (20-30) Anion Gap 12 (5-15) Blood Urea Nitrogen 14 mg/dL (7-23) Creatinine 1.3 mg/dL (0.5-0.9) H Estimat Glomerular Filtration Rate 41.1 mL/min (>60) Glucose Level 134 mg/dL (74-106) H Calcium Level 9.4 mg/dL (8.6-10.2) Current Medications Medications (Trade) Dose Ordered Sig/Ki Route PRN Reason Start Time Stop Time Status Last Admin Dose Admin Albuterol/ Ipratropium (DuoNeb 0.5-3(2.5)mg/3ml) 3 ml Q6HRT HHN 02/06/17 19:00 02/11/17 18:59 02/07/17 19:59 Aripiprazole (Abilify) 10 mg DAILY ORAL 02/07/17 09:00 03/09/17 08:59 02/08/17 09:54 Fluconazole (Diflucan) 400 mg DAILY ORAL 02/09/17 09:00 02/16/17 08:59 Hydrochlorothiazide (Hydrodiuril) 25 mg DAILY ORAL 02/07/17 09:00 03/09/17 08:59 Iron Sucrose 100 mg/Sodium Chloride 60 ml @ 240 mls/hr BEDTIME IV 02/07/17 21:00 02/11/17 21:14 02/07/17 21:28 Losartan Potassium (Cozaar) 100 mg DAILY ORAL 02/07/17 09:00 03/09/17 08:59 Patient Own Medication (Patient's Own Med) 1 ea BEDTIME ORAL 02/07/17 18:00 03/09/17 17:59 UNV Patient Own Medication (Patient's Own Med) 1 ea DAILY ORAL 02/07/17 10:00 03/09/17 09:59 02/08/17 09:53 Patient Own Medication (Patient's Own Med) 1 ea DAILY ORAL 02/08/17 09:00 03/10/17 08:59 02/08/17 09:00 Patient Own Medication (Patient's Own Med) 2 ea QHS ORAL 02/07/17 21:00 03/09/17 20:59 02/07/17 21:28 Piperacillin Sod/ Tazobactam Sod 3.375 gm/Dextrose 100 ml @ 200 mls/hr Q6H IVPB 02/06/17 17:30 02/13/17 17:29 02/08/17 11:53 Promethazine HCl/ Codeine (Phenergan with Codeine) 5 ml Q4H PRN ORAL For Cough 02/07/17 22:30 03/09/17 22:29 02/07/17 22:42 AKILAH WOODALL Feb 08, 2017 15:04
--- NOTE | 2017-02-08 17:33 | Pulmonology Progress Note ---
Assessment/Plan Assessment/Plan 1. Pneumonia with cough and fever and abnormal chest x-ray. 2. Status post radical hysterectomy and chemotherapy for metastatic ovarian cancer, currently in remission. 3. Hypertension. 4. Coronary heart disease, asymptomatic. 5. Depression, controlled on medication. continue abx recheck am labs prbc if cont to decline o2 ivf pain meds antitussives cxr am may need bronchoscopy Subjective Constitutional: Reports: no symptoms HEENT: Repors: no symptoms Respiratory: Reports: dry cough Cardiovascular: Reports: no symptoms Gastrointestinal/Abdominal: Reports: no symptoms Genitourinary: Reports: no symptoms Psychiatric: Reports: no symptoms Endocrine: Reports: no symptoms Allergies: Coded Allergies: No Known Allergies (Unverified , 02/06/17) Subjective complains of noproductive cough, not improved with meds on abx per ID no fever at this time on ra stable tolerating po Objective Last 24 Hour Vital Signs Date Time Temp Pulse Resp B/P (MAP) Pulse Ox O2 Delivery O2 Flow Rate FiO2 02/08/17 16:00 98.3 78 19 112/69 95 Room Air 02/08/17 13:26 Room Air 02/08/17 13:25 Room Air 02/08/17 12:00 98.2 89 18 113/76 95 Room Air 02/08/17 09:00 84/51 02/08/17 08:00 98.2 77 16 84/51 92 Room Air 02/08/17 07:40 Room Air 02/08/17 07:39 Room Air 02/08/17 05:20 109/60 02/08/17 04:16 97.4 83 19 88/49 94 Room Air 02/08/17 00:13 Room Air 02/08/17 00:13 Room Air 02/08/17 00:03 97.9 80 18 110/68 97 Room Air 02/07/17 20:15 74 18 97 Room Air 21 02/07/17 20:06 98.1 77 19 115/75 97 Room Air 02/07/17 20:02 73 18 96 Room Air 2.0 21 General Appearance: WD/WN HEENT: atraumatic, anicteric Respiratory/Chest: rhonchi Cardiovascular: normal rate, regular rhythm Abdomen: soft, non tender, no organomegaly Extremities: no cyanosis Skin: no rash Neurologic/Psychiatric: no motor/sensory deficits, oriented x 3 Lymphatic: no neck adenopathy Microbiology Date/Time Source Procedure Growth Status 02/06/17 11:30 Blood Blood Culture - Preliminary NO GROWTH AFTER 24 HOURS Resulted 02/06/17 11:00 Blood Blood Culture - Preliminary NO GROWTH AFTER 24 HOURS Resulted Laboratory Tests 02/08/17 08:07: White Blood Count 8.2, Red Blood Count 2.62L, Hemoglobin 8.8L, Hematocrit 25.2L , Mean Corpuscular Volume 96, Mean Corpuscular Hemoglobin 33.4H, Mean Corpuscular Hemoglobin Concent 34.8, Red Cell Distribution Width 11.8, Platelet Count 456H, Mean Platelet Volume 4.9L, Neutrophils (%) (Auto) 73.8, Lymphocytes (%) (Auto) 12.8L, Monocytes (%) (Auto) 6.5, Eosinophils (%) (Auto) 6.3H, Basophils (%) (Auto) 0.7, Sodium Level 139, Potassium Level 4.4, Chloride Level 100, Carbon Dioxide Level 27, Anion Gap 12, Blood Urea Nitrogen 14, Creatinine 1.3H, Estimat Glomerular Filtration Rate 41.1, Glucose Level 134H, Calcium Level 9.4 Current Medications Medications (Trade) Dose Ordered Sig/Ki Route PRN Reason Start Time Stop Time Status Last Admin Dose Admin Albuterol/ Ipratropium (DuoNeb 0.5-3(2.5)mg/3ml) 3 ml Q6HRT HHN 02/06/17 19:00 02/11/17 18:59 02/07/17 19:59 Aripiprazole (Abilify) 10 mg DAILY ORAL 02/07/17 09:00 03/09/17 08:59 02/08/17 09:54 Doxycycline Monohydrate (Vibramycin) 100 mg EVERY 12 HOURS ORAL 02/08/17 21:00 02/15/17 20:59 Fluconazole (Diflucan) 400 mg DAILY ORAL 02/09/17 09:00 02/16/17 08:59 Hydrochlorothiazide (Hydrodiuril) 25 mg DAILY ORAL 02/07/17 09:00 03/09/17 08:59 Iron Sucrose 100 mg/Sodium Chloride 60 ml @ 240 mls/hr BEDTIME IV 02/07/17 21:00 02/11/17 21:14 02/07/17 21:28 Losartan Potassium (Cozaar) 100 mg DAILY ORAL 02/07/17 09:00 03/09/17 08:59 Patient Own Medication (Patient's Own Med) 1 ea BEDTIME ORAL 02/07/17 18:00 03/09/17 17:59 UNV Patient Own Medication (Patient's Own Med) 1 ea DAILY ORAL 02/07/17 10:00 03/09/17 09:59 02/08/17 09:53 Patient Own Medication (Patient's Own Med) 1 ea DAILY ORAL 02/08/17 09:00 03/10/17 08:59 02/08/17 09:00 Patient Own Medication (Patient's Own Med) 2 ea QHS ORAL 02/07/17 21:00 03/09/17 20:59 02/07/17 21:28 Piperacillin Sod/ Tazobactam Sod 3.375 gm/Dextrose 110 ml @ 27.5 mls/hr EVERY 8 HOURS IVPB 02/08/17 22:00 02/13/17 21:59 Promethazine HCl/ Codeine (Phenergan with Codeine) 5 ml Q4H PRN ORAL For Cough 02/07/17 22:30 03/09/17 22:29 02/07/17 22:42 NAPOLEON RODRIGUEZ DO Feb 08, 2017 17:33
[2017-02-08] MEDS: Zosyn 3.375gm q8h **Extended infusion IVPB SCH ×2 (21:18)
[2017-02-08] MEDS: Iron Sucrose 100 MG in NS 55 ML IV SCH (21:18)
[2017-02-09] VITALS: BP 125/65
[2017-02-09] MEDS: DuoNeb 0.5-3(2.5)mg/3ml neb HHN SCH ×4 (01:30→19:40)
[2017-02-09 04:00] VITALS: BP 130/70
[2017-02-09] MEDS: Zosyn 3.375gm q8h **Extended infusion IVPB SCH ×6 (07:03→21:58)
[2017-02-09 07:08] LABS: BASOPHILS % (AUTO) 0.7 % (0.0-2.0); EOSINOPHILS % (AUTO) 5.6 % (0.0-3.0); MEAN CORPUSCULAR HEMOGLOBIN 32.8 PG (27.0-31.0); MEAN CORPUSCULAR HGB CONC 34.3 G/DL (32.0-36.0); MEAN CORPUSCULAR VOLUME 96 FL (80-99); MEAN PLATELET VOLUME 4.9 FL (6.5-10.1); MONOCYTES % (AUTO) 5.5 % (1.0-10.0); NEUTROPHILS % (AUTO) 70.3 % (45.0-75.0); PLATELET COUNT 483 K/UL (150-450); RED BLOOD COUNT 2.81 M/UL (4.20-5.40); RED CELL DISTRIBUTION WIDTH 11.7 % (11.6-14.8); WHITE BLOOD COUNT 9.3 K/UL (4.8-10.8)
[2017-02-09 07:18] LABS: ALANINE AMINOTRANSFERASE 75 U/L (3-33); ALBUMIN/GLOBULIN RATIO 0.8 (1.0-2.7); ANION GAP 15 (5-15); ASPARTATE AMINO TRANSFERASE 61 U/L (5-40); CALCIUM 9.9 mg/dL (8.6-10.2); CARBON DIOXIDE 24 mEQ/L (20-30); CHLORIDE 101 mEQ/L (98-107); CREATININE 1.2 mg/dL (0.5-0.9); GLOMERULAR FILTRATION RATE 45.1 mL/min (>60); HEMOLYSIS 1; POTASSIUM 3.8 mEQ/L (3.4-4.9); SODIUM 140 mEQ/L (135-145); TOTAL PROTEIN 6.8 g/dL (6.6-8.7)
[2017-02-09 07:58] VITALS: BP 102/63
[2017-02-09] MEDS: Losartan 50mg tab ORAL SCH (09:00)
[2017-02-09] MEDS: VYVANSE 70 MG ORAL SCH (09:00)
[2017-02-09] MEDS: ARIPiprazole 10mg tab ORAL SCH (09:00)
[2017-02-09] MEDS: Fluconazole 100mg tab ORAL SCH (09:00)
--- NOTE | 2017-02-09 10:48 | Infectious Diseases Prog Note ---
Assessment/Plan Assessment/Plan ASSESSMENT AND PLAN: 1. pna - ? etiology, ? cocci, ? cap, doubt mrsa or TB, elevated eosinophils on cbc diff., ? eosinophilic pna, ? other, hx of ovarian ca with mets - clinically without improvement - check serology and sputum culture if possible - zosyn, doxy, diflucan - may need bronchoscopy - d/w pulmonary medicine - Dr. Ramesh - check labs and chest x-ray, elevated creatinine noted - mild increase in LFT's, check hepatitis panel, defers us abdomen , no abdominal pain 2. History of presumptive latent tuberculosis, status post INH x1 year per the patient. 3. The [place]. 4. Hypertension. 5. Asymptomatic coronary artery disease. 6. Ovarian cancer with metastasis, status post chemotherapy and surgery, in remission. 7. Mildly elevated creatinine. 8. Depression. 9. No known allergies. 10. Social history is negative. 11. MAR was noted. 12. Case was discussed with RN. 13. Family history is noncontributory. 14. History of BCG vaccine. 15. Records were noted. 16. Continue treatment per Dr. Kaur. Subjective Constitutional: Denies: fever HEENT: Denies: congestion Respiratory: Reports: dry cough, Denies: shortness of breath Cardiovascular: Denies: chest pain Gastrointestinal/Abdominal: Denies: nausea, vomiting, diarrhea Genitourinary: Reports: other - no nguyen Neurologic: Denies: headache Psychiatric: Denies: depression Skin: Denies: rash Hematologic: Denies: bleeding Musculoskeletal: Denies: pain Allergies: Coded Allergies: No Known Allergies (Unverified , 02/06/17) Objective Vital Signs Last 24 Hour Vital Signs Date Time Temp Pulse Resp B/P (MAP) Pulse Ox O2 Delivery O2 Flow Rate FiO2 02/09/17 09:00 102/63 02/09/17 07:58 97.4 78 18 102/63 97 Room Air 02/09/17 06:31 Room Air 02/09/17 06:31 78 18 98 Room Air 02/09/17 04:00 98.2 84 20 130/70 98 Room Air 02/09/17 01:30 Room Air 02/09/17 00:00 98.1 85 17 125/65 96 Room Air 02/08/17 20:28 97.9 90 18 130/77 97 Room Air 02/08/17 20:05 85 18 99 Room Air 21 02/08/17 19:55 84 18 99 Room Air 21 02/08/17 19:55 21 02/08/17 16:00 98.3 78 19 112/69 95 Room Air 02/08/17 13:26 Room Air 02/08/17 13:25 Room Air 02/08/17 12:00 98.2 89 18 113/76 95 Room Air Height (Feet): 5 Height (Inches): 6.00 Weight (Pounds): 155 General Appearance: no acute distress HEENT: normocephalic, atraumatic, anicteric, mucous membranes moist, EOMI, pharynx normal, supple, no JVD Respiratory/Chest: lungs clear, normal breath sounds, no respiratory distress, no accessory muscle use, other - coarse breath sounds Cardiovascular: normal rate, regular rhythm, no gallop/murmur, no JVD Abdomen: normal bowel sounds, soft, non tender, no organomegaly, non distended Genitourinary: other - no nguyen Extremities: no cyanosis Skin: no rash 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 Findings could represent some ill-defined scarring of the lungs. Possibility of pneumonia not excluded. Please correlate clinically. Right chest port noted in good position. Ct scan of the Chest: CT Dose Index Volume (CTDIvol): 0.15, 21.4 mGy Comparison: none Findings: Ill-defined infiltrates are present within the upper lobes suspicious for pneumonia. There is no interstitial fibrosis per se. There are some mild reticular densities at the lung bases nonspecific in nature. This could represent mild subsegmental atelectasis which is probably most likely. No pleural effusions are seen. There is no lymphadenopathy identified. There is a right chest port present. The tip terminates within the SVC in good position. Consultation of aorta and coronary calcifications are also noted. Visualized part of the upper abdomen is unremarkable. Impression: Patchy upper lobe infiltrates. Consider pneumonia. No interstitial fibrosis demonstrated. Mild atherosclerotic vascular disease Right chest port in good position Microbiology Date/Time Source Procedure Growth Status 02/06/17 11:30 Blood Blood Culture - Preliminary NO GROWTH AFTER 48 HOURS Resulted 02/06/17 11:00 Blood Blood Culture - Preliminary NO GROWTH AFTER 48 HOURS Resulted Laboratory Tests Test 02/09/17 05:00 White Blood Count 9.3 K/UL (4.8-10.8) Red Blood Count 2.81 M/UL (4.20-5.40) L Hemoglobin 9.2 G/DL (12.0-16.0) L Hematocrit 26.9 % (37.0-47.0) L Mean Corpuscular Volume 96 FL (80-99) Mean Corpuscular Hemoglobin 32.8 PG (27.0-31.0) H Mean Corpuscular Hemoglobin Concent 34.3 G/DL (32.0-36.0) Red Cell Distribution Width 11.7 % (11.6-14.8) Platelet Count 483 K/UL (150-450) H Mean Platelet Volume 4.9 FL (6.5-10.1) L Neutrophils (%) (Auto) 70.3 % (45.0-75.0) Lymphocytes (%) (Auto) 18.0 % (20.0-45.0) L Monocytes (%) (Auto) 5.5 % (1.0-10.0) Eosinophils (%) (Auto) 5.6 % (0.0-3.0) H Basophils (%) (Auto) 0.7 % (0.0-2.0) Sodium Level 140 mEQ/L (135-145) Potassium Level 3.8 mEQ/L (3.4-4.9) Chloride Level 101 mEQ/L (98-107) Carbon Dioxide Level 24 mEQ/L (20-30) Anion Gap 15 (5-15) Blood Urea Nitrogen 14 mg/dL (7-23) Creatinine 1.2 mg/dL (0.5-0.9) H Estimat Glomerular Filtration Rate 45.1 mL/min (>60) Glucose Level 84 mg/dL (74-106) Calcium Level 9.9 mg/dL (8.6-10.2) Total Bilirubin < 0.2 mg/dL (0.0-1.2) Aspartate Amino Transf (AST/SGOT) 61 U/L (5-40) H Alanine Aminotransferase (ALT/SGPT) 75 U/L (3-33) H Alkaline Phosphatase 255 U/L (35-104) H Total Protein 6.8 g/dL (6.6-8.7) Albumin 3.1 g/dL (3.5-5.2) L Globulin 3.7 g/dL Albumin/Globulin Ratio 0.8 (1.0-2.7) L Current Medications Medications (Trade) Dose Ordered Sig/Ki Route PRN Reason Start Time Stop Time Status Last Admin Dose Admin Albuterol/ Ipratropium (DuoNeb 0.5-3(2.5)mg/3ml) 3 ml Q6HRT HHN 02/06/17 19:00 02/11/17 18:59 02/08/17 19:57 Aripiprazole (Abilify) 10 mg DAILY ORAL 02/07/17 09:00 03/09/17 08:59 02/09/17 09:00 Doxycycline Monohydrate (Vibramycin) 100 mg EVERY 12 HOURS ORAL 02/08/17 21:00 02/15/17 20:59 02/09/17 08:59 Fluconazole (Diflucan) 400 mg DAILY ORAL 02/09/17 09:00 02/16/17 08:59 02/09/17 09:00 Hydrochlorothiazide (Hydrodiuril) 25 mg DAILY ORAL 02/07/17 09:00 03/09/17 08:59 Iron Sucrose 100 mg/Sodium Chloride 60 ml @ 240 mls/hr BEDTIME IV 02/07/17 21:00 02/11/17 21:14 02/08/17 21:18 Losartan Potassium (Cozaar) 100 mg DAILY ORAL 02/07/17 09:00 03/09/17 08:59 Patient Own Medication (Patient's Own Med) 1 ea BEDTIME ORAL 02/07/17 18:00 03/09/17 17:59 UNV Patient Own Medication (Patient's Own Med) 1 ea DAILY ORAL 02/07/17 10:00 03/09/17 09:59 02/09/17 09:00 Patient Own Medication (Patient's Own Med) 1 ea DAILY ORAL 02/08/17 09:00 03/10/17 08:59 02/08/17 09:00 Patient Own Medication (Patient's Own Med) 2 ea QHS ORAL 02/07/17 21:00 03/09/17 20:59 02/08/17 21:18 Piperacillin Sod/ Tazobactam Sod 3.375 gm/Dextrose 110 ml @ 27.5 mls/hr EVERY 8 HOURS IVPB 02/08/17 22:00 02/13/17 21:59 02/09/17 07:03 Promethazine HCl/ Codeine (Phenergan with Codeine) 5 ml Q4H PRN ORAL For Cough 02/07/17 22:30 03/09/17 22:29 02/07/17 22:42 AKILAH WOODALL Feb 09, 2017 10:48
--- NOTE | 2017-02-09 11:15 | Pulmonology Progress Note ---
Assessment/Plan Assessment/Plan 1. Pneumonia with cough and fever and abnormal chest x-ray. 2. Status post radical hysterectomy and chemotherapy for metastatic ovarian cancer, currently in remission. 3. Hypertension. 4. Coronary heart disease, asymptomatic. 5. Depression, controlled on medication. not better w abx disc w ID and [employer] will schedule bronch for tomorrow she gave consent CT reviewed, extensive upper lobe infiltrates/scarring Subjective Constitutional: Denies: fever Respiratory: Reports: dry cough Allergies: Coded Allergies: No Known Allergies (Unverified , 02/06/17) Objective Last 24 Hour Vital Signs Date Time Temp Pulse Resp B/P (MAP) Pulse Ox O2 Delivery O2 Flow Rate FiO2 02/09/17 09:00 102/63 02/09/17 07:58 97.4 78 18 102/63 97 Room Air 02/09/17 06:31 Room Air 02/09/17 06:31 78 18 98 Room Air 02/09/17 04:00 98.2 84 20 130/70 98 Room Air 02/09/17 01:30 Room Air 02/09/17 00:00 98.1 85 17 125/65 96 Room Air 02/08/17 20:28 97.9 90 18 130/77 97 Room Air 02/08/17 20:05 85 18 99 Room Air 21 02/08/17 19:55 84 18 99 Room Air 21 02/08/17 19:55 21 02/08/17 16:00 98.3 78 19 112/69 95 Room Air 02/08/17 13:26 Room Air 02/08/17 13:25 Room Air 02/08/17 12:00 98.2 89 18 113/76 95 Room Air Intake and Output 02/09/17 02/10/17 19:00 07:00 # Voids 1 General Appearance: no acute distress HEENT: atraumatic Respiratory/Chest: lungs clear Cardiovascular: normal rate Abdomen: soft, non tender Microbiology Date/Time Source Procedure Growth Status 02/06/17 11:30 Blood Blood Culture - Preliminary NO GROWTH AFTER 48 HOURS Resulted Laboratory Tests 02/09/17 05:00: White Blood Count 9.3, Red Blood Count 2.81L, Hemoglobin 9.2L, Hematocrit 26.9L , Mean Corpuscular Volume 96, Mean Corpuscular Hemoglobin 32.8H, Mean Corpuscular Hemoglobin Concent 34.3, Red Cell Distribution Width 11.7, Platelet Count 483H, Mean Platelet Volume 4.9L, Neutrophils (%) (Auto) 70.3, Lymphocytes (%) (Auto) 18.0L, Monocytes (%) (Auto) 5.5, Eosinophils (%) (Auto) 5.6H, Basophils (%) (Auto) 0.7, Sodium Level 140, Potassium Level 3.8, Chloride Level 101, Carbon Dioxide Level 24, Anion Gap 15, Blood Urea Nitrogen 14, Creatinine 1.2H, Estimat Glomerular Filtration Rate 45.1, Glucose Level 84, Calcium Level 9.9, Total Bilirubin < 0.2, Aspartate Amino Transf (AST/SGOT) 61H, Alanine Aminotransferase (ALT/SGPT) 75H, Alkaline Phosphatase 255H, Total Protein 6.8, Albumin 3.1L, Globulin 3.7, Albumin/Globulin Ratio 0.8L Current Medications Medications (Trade) Dose Ordered Sig/Ki Route PRN Reason Start Time Stop Time Status Last Admin Dose Admin Albuterol/ Ipratropium (DuoNeb 0.5-3(2.5)mg/3ml) 3 ml Q6HRT HHN 02/06/17 19:00 02/11/17 18:59 02/08/17 19:57 Aripiprazole (Abilify) 10 mg DAILY ORAL 02/07/17 09:00 03/09/17 08:59 02/09/17 09:00 Doxycycline Monohydrate (Vibramycin) 100 mg EVERY 12 HOURS ORAL 02/08/17 21:00 02/15/17 20:59 02/09/17 08:59 Fluconazole (Diflucan) 400 mg DAILY ORAL 02/09/17 09:00 02/16/17 08:59 02/09/17 09:00 Hydrochlorothiazide (Hydrodiuril) 25 mg DAILY ORAL 02/07/17 09:00 03/09/17 08:59 Iron Sucrose 100 mg/Sodium Chloride 60 ml @ 240 mls/hr BEDTIME IV 02/07/17 21:00 02/11/17 21:14 02/08/17 21:18 Losartan Potassium (Cozaar) 100 mg DAILY ORAL 02/07/17 09:00 03/09/17 08:59 Patient Own Medication (Patient's Own Med) 1 ea BEDTIME ORAL 02/07/17 18:00 03/09/17 17:59 UNV Patient Own Medication (Patient's Own Med) 1 ea DAILY ORAL 02/07/17 10:00 03/09/17 09:59 02/09/17 09:00 Patient Own Medication (Patient's Own Med) 1 ea DAILY ORAL 02/08/17 09:00 03/10/17 08:59 02/08/17 09:00 Patient Own Medication (Patient's Own Med) 2 ea QHS ORAL 02/07/17 21:00 03/09/17 20:59 02/08/17 21:18 Piperacillin Sod/ Tazobactam Sod 3.375 gm/Dextrose 110 ml @ 27.5 mls/hr EVERY 8 HOURS IVPB 02/08/17 22:00 02/13/17 21:59 02/09/17 07:03 Promethazine HCl/ Codeine (Phenergan with Codeine) 5 ml Q4H PRN ORAL For Cough 02/07/17 22:30 03/09/17 22:29 02/07/17 22:42 MU LOPEZ Feb 09, 2017 11:15
[2017-02-09 12:00] VITALS: BP 101/66
--- NOTE | 2017-02-09 12:00 | Diagnostic Imaging Report ---
Indication: Cough Technique: One view of the chest Comparison: 02/06/2017 Findings: Right chest port catheter again demonstrated, tip projected at the level of the innominate venous confluence. Irregular opacity is again demonstrated in the left upper lobe. This may be slightly increased. Irregular linear opacities again demonstrated in the right upper lobe, unchanged. No other acute infiltrates. The heart size is normal. Impression: Possibly slightly increased left upper lobe infiltrate, better visualized on recent CT scan. Otherwise little change.
[2017-02-09] MEDS ORDERED: VYVANSE 70 MG ORAL PRN ×2 (13:00→13:15)
--- NOTE | 2017-02-09 13:39 | General Progress Note ---
Assessment/Plan Status: stable, tolerating diet Status Narrative pneumonia ? etiology Assessment/Plan bronchoscopy in am. Subjective Date patient seen: Feb 09, 2017 Time patient seen: 13:33 Constitutional: Reports: no symptoms HEENT: Reports: no symptoms Cardiovascular: Reports: no symptoms Respiratory: Reports: cough Gastrointestinal/Abdominal: Reports: other Genitourinary: Reports: no symptoms Neurologic/Psychiatric: Reports: depressed Endocrine: Reports: no symptoms Hematologic/Lymphatic: Reports: anemia Allergies: Coded Allergies: No Known Allergies (Unverified , 02/06/17) Objective Last 24 Hour Vital Signs Date Time Temp Pulse Resp B/P (MAP) Pulse Ox O2 Delivery O2 Flow Rate FiO2 02/09/17 13:13 Room Air 02/09/17 13:13 Room Air 02/09/17 12:00 98.1 68 19 101/66 98 Room Air 02/09/17 09:00 102/63 02/09/17 07:58 97.4 78 18 102/63 97 Room Air 02/09/17 06:31 Room Air 02/09/17 06:31 78 18 98 Room Air 02/09/17 04:00 98.2 84 20 130/70 98 Room Air 02/09/17 01:30 Room Air 02/09/17 00:00 98.1 85 17 125/65 96 Room Air 02/08/17 20:28 97.9 90 18 130/77 97 Room Air 02/08/17 20:05 85 18 99 Room Air 21 02/08/17 19:55 84 18 99 Room Air 21 02/08/17 19:55 21 02/08/17 16:00 98.3 78 19 112/69 95 Room Air Intake and Output 02/09/17 02/10/17 19:00 07:00 Intake Total 350.0 ml Balance 350.0 ml Intake Oral 240 ml IV Total 110.0 ml # Voids 2 Laboratory Tests 02/09/17 05:00: White Blood Count 9.3, Red Blood Count 2.81L, Hemoglobin 9.2L, Hematocrit 26.9L , Mean Corpuscular Volume 96, Mean Corpuscular Hemoglobin 32.8H, Mean Corpuscular Hemoglobin Concent 34.3, Red Cell Distribution Width 11.7, Platelet Count 483H, Mean Platelet Volume 4.9L, Neutrophils (%) (Auto) 70.3, Lymphocytes (%) (Auto) 18.0L, Monocytes (%) (Auto) 5.5, Eosinophils (%) (Auto) 5.6H, Basophils (%) (Auto) 0.7, Sodium Level 140, Potassium Level 3.8, Chloride Level 101, Carbon Dioxide Level 24, Anion Gap 15, Blood Urea Nitrogen 14, Creatinine 1.2H, Estimat Glomerular Filtration Rate 45.1, Glucose Level 84, Calcium Level 9.9, Total Bilirubin < 0.2, Aspartate Amino Transf (AST/SGOT) 61H, Alanine Aminotransferase (ALT/SGPT) 75H, Alkaline Phosphatase 255H, Total Protein 6.8, Albumin 3.1L, Globulin 3.7, Albumin/Globulin Ratio 0.8L Height (Feet): 5 Height (Inches): 6.00 Weight (Pounds): 155 Respiratory/Chest: crackles/rales Abdomen: normal bowel sounds Pelvis: other Scott Perry MD Feb 09, 2017 13:38
[2017-02-09] MEDS ORDERED: NS 275ml ONE (15:54)
[2017-02-09 16:00] VITALS: BP 113/72
[2017-02-09 20:00] VITALS: BP 127/69
[2017-02-09] MEDS: Iron Sucrose 100 MG in NS 55 ML IV SCH (21:04)
[2017-02-10] VITALS (11 sets, daily range): BP systolic 100–148; BP diastolic 53–76
[2017-02-10] MEDS: DuoNeb 0.5-3(2.5)mg/3ml neb HHN SCH ×4 (01:00→19:38)
[2017-02-10] MEDS: Zosyn 3.375gm q8h **Extended infusion IVPB SCH ×2 (06:25)
[2017-02-10 06:26] LABS: BASOPHILS % (AUTO) 0.7 % (0.0-2.0); EOSINOPHILS % (AUTO) 5.1 % (0.0-3.0); LYMPHOCYTES % (AUTO) 13.6 % (20.0-45.0); MEAN CORPUSCULAR HEMOGLOBIN 32.8 PG (27.0-31.0); MEAN CORPUSCULAR HGB CONC 34.1 G/DL (32.0-36.0); MEAN CORPUSCULAR VOLUME 96 FL (80-99); MEAN PLATELET VOLUME 4.8 FL (6.5-10.1); MONOCYTES % (AUTO) 6.5 % (1.0-10.0); NEUTROPHILS % (AUTO) 74.1 % (45.0-75.0); PLATELET COUNT 448 K/UL (150-450); RED BLOOD COUNT 2.61 M/UL (4.20-5.40); RED CELL DISTRIBUTION WIDTH 11.8 % (11.6-14.8); WHITE BLOOD COUNT 10.9 K/UL (4.8-10.8)
[2017-02-10 06:54] LABS: ALANINE AMINOTRANSFERASE 51 U/L (3-33); ASPARTATE AMINO TRANSFERASE 21 U/L (5-40); BILIRUBIN,DIRECT 0.1 mg/dL (0.1-0.3); HEMOLYSIS 1; TOTAL PROTEIN 6.3 g/dL (6.6-8.7)
[2017-02-10 07:15] LABS: CALCIUM 9.5 mg/dL (8.6-10.2); CREATININE 1.1 mg/dL (0.5-0.9); GLOMERULAR FILTRATION RATE 49.9 mL/min (>60); POTASSIUM 3.8 mEQ/L (3.4-4.9)
[2017-02-10] MEDS: Losartan 50mg tab ORAL SCH (09:00)
[2017-02-10] MEDS: Fluconazole 100mg tab ORAL SCH (09:00)
[2017-02-10] MEDS: ARIPiprazole 10mg tab ORAL SCH ×2 (09:00→21:00)
[2017-02-10] MEDS ORDERED: Bacitracin Oint 15gm Tube TOPIC ONE (11:22)
[2017-02-10] MEDS ORDERED: NS Irrig 1000ml ONE (11:30)
[2017-02-10] MEDS ORDERED: LR 1000ml ONE (11:30)
[2017-02-10] MEDS ORDERED: fentaNYL 100 mcg/2 mL IV ONE (11:30)
[2017-02-10] MEDS ORDERED: Propofol 10mg/ml 20ml IV ONE (11:30)
--- NOTE | 2017-02-10 12:39 | Pre-Procedure Note/Attestation ---
Pre-Procedure Note/Attestation Complete Prior to Procedure Planned Procedure: bilateral Procedure Narrative: bronchoscopy and lavage Indications for Procedure Pre-Operative Diagnosis: bilateral pneumonia Attestation I attest that I discussed the nature of the procedure; its benefits; risks and complications; and alternatives (and the risks and benefits of such alternatives ), prior to the procedure, with the patient (or the patient's legal medical representative). I attest that, if there was a reasonable possibility of needing a blood transfusion, the patient (or the patient's legal medical representative) was given the [facility] standardized written summary, pursuant to the [place] Blood Safety Act ([place] Health and Safety Code # 1645, as amended). I attest that I re-evaluated the patient just prior to the surgery and that there has been no change in the patient's H&P, except as documented below: MU LOPEZ Feb 10, 2017 12:39
--- NOTE | 2017-02-10 12:43 | Pulmonology Progress Note ---
Assessment/Plan Assessment/Plan 1. Pneumonia with cough and fever and abnormal chest x-ray. 2. Status post radical hysterectomy and chemotherapy for metastatic ovarian cancer, currently in remission. 3. Hypertension. 4. Coronary heart disease, asymptomatic. 5. Depression, controlled on medication. bronch with lavage done and note dict disc w Dr Perry serologies pdg Subjective Allergies: Coded Allergies: No Known Allergies (Unverified , 02/06/17) Objective Last 24 Hour Vital Signs Date Time Temp Pulse Resp B/P (MAP) Pulse Ox O2 Delivery O2 Flow Rate FiO2 02/10/17 08:00 97.9 71 19 104/59 95 Room Air 02/10/17 07:56 Room Air 02/10/17 07:55 Room Air 02/10/17 01:28 Room Air 02/10/17 01:27 Room Air 02/10/17 00:00 99.1 85 18 106/60 95 Room Air 02/09/17 20:00 97.8 78 18 127/69 96 Room Air 02/09/17 19:41 79 20 100 Room Air 21 02/09/17 19:30 77 20 98 Room Air 21 02/09/17 16:00 98.5 80 19 113/72 98 Room Air 02/09/17 13:13 Room Air 02/09/17 13:13 Room Air Laboratory Tests 02/10/17 05:20: White Blood Count 10.9H, Red Blood Count 2.61L, Hemoglobin 8.5L, Hematocrit 25.1L, Mean Corpuscular Volume 96, Mean Corpuscular Hemoglobin 32.8H, Mean Corpuscular Hemoglobin Concent 34.1, Red Cell Distribution Width 11.8, Platelet Count 448, Mean Platelet Volume 4.8L, Neutrophils (%) (Auto) 74.1, Lymphocytes ( %) (Auto) 13.6L, Monocytes (%) (Auto) 6.5, Eosinophils (%) (Auto) 5.1H, Basophils (%) (Auto) 0.7, Sodium Level 137, Potassium Level 3.8, Chloride Level 99, Carbon Dioxide Level 24, Anion Gap 14, Blood Urea Nitrogen 12, Creatinine 1.1H, Estimat Glomerular Filtration Rate 49.9, Glucose Level 86, Calcium Level 9.5, Total Bilirubin < 0.2, Direct Bilirubin 0.1, Aspartate Amino Transf (AST/ SGOT) 21, Alanine Aminotransferase (ALT/SGPT) 51H, Alkaline Phosphatase 196H, Total Protein 6.3L, Albumin 3.0L 02/10/17 09:15: Hepatitis A IgM Antibody [Pending], Hepatitis B Surface Antigen [Pending], Hepatitis B Core IgM Antibody [Pending], Hepatitis C Antibody [Pending], TB Test (T-Spot) [Pending], TB Test Nil Control (T-Spot) [Pending], TB Test Panel A (T-Spot) [Pending], TB Test Panel B (T-Spot) [Pending], TB Test Positive Control (T-Spot) [Pending] Current Medications Medications (Trade) Dose Ordered Sig/Ki Route PRN Reason Start Time Stop Time Status Last Admin Dose Admin Albuterol/ Ipratropium (DuoNeb 0.5-3(2.5)mg/3ml) 3 ml Q6HRT HHN 02/06/17 19:00 02/11/17 18:59 02/09/17 19:40 Aripiprazole (Abilify) 10 mg DAILY ORAL 02/07/17 09:00 03/09/17 08:59 02/09/17 09:00 Doxycycline Monohydrate (Vibramycin) 100 mg EVERY 12 HOURS ORAL 02/08/17 21:00 02/15/17 20:59 02/09/17 21:58 Fluconazole (Diflucan) 400 mg DAILY ORAL 02/09/17 09:00 02/16/17 08:59 02/09/17 09:00 Hydrochlorothiazide (Hydrodiuril) 25 mg DAILY ORAL 02/07/17 09:00 03/09/17 08:59 Iron Sucrose 100 mg/Sodium Chloride 60 ml @ 240 mls/hr BEDTIME IV 02/07/17 21:00 02/11/17 21:14 02/09/17 21:04 Losartan Potassium (Cozaar) 100 mg DAILY ORAL 02/07/17 09:00 03/09/17 08:59 Patient Own Medication (Patient's Own Med) 1 ea BEDTIME ORAL 02/07/17 18:00 03/09/17 17:59 UNV Patient Own Medication (Patient's Own Med) 1 ea DAILY ORAL 02/07/17 10:00 03/09/17 09:59 02/09/17 09:00 Patient Own Medication (Patient's Own Med) 1 ea DAILYPRN PRN ORAL DEPRESSION 02/09/17 13:15 03/11/17 12:59 Patient Own Medication (Patient's Own Med) 2 ea QHS ORAL 02/07/17 21:00 03/09/17 20:59 02/09/17 21:58 Piperacillin Sod/ Tazobactam Sod 3.375 gm/Dextrose 110 ml @ 27.5 mls/hr EVERY 8 HOURS IVPB 02/08/17 22:00 02/13/17 21:59 02/10/17 06:25 Promethazine HCl/ Codeine (Phenergan with Codeine) 5 ml Q4H PRN ORAL For Cough 02/07/17 22:30 03/09/17 22:29 02/07/17 22:42 MU LOPEZ Feb 10, 2017 12:43
[2017-02-10] MEDS ORDERED: LR 1000ml 1,000 ML IVLG SCH (12:47)
--- NOTE | 2017-02-10 12:52 | Anethesia Preoperative Eval ---
Anesthesia Pre-op PMH/ROS General Date of Evaluation: Feb 10, 2017 Time of Evaluation: 11:55 Anesthesiologist: Rommel ASA Score: ASA 3 Mallampati Score Class I : Soft palate, uvula, fauces, pillars visible Class II: Soft palate, uvula, fauces visible Class III: Soft palate, base of uvula visible Class IV: Only hard plate visible Mallampati Classification: Class II Surgeon: Natasha Diagnosis: Persistant cough Surgical Procedure: Bronchoscopy Family History: no anesthesia problems Allergies: Coded Allergies: No Known Allergies (Unverified , 02/06/17) Medications: see eMAR Past Medical History Cardiovascular: Reports: HTN, Denies: CAD, [place], valve dz, arrhythmia, other Pulmonary: Denies: asthma, COPD, CLIVE, other Gastrointestinal/Genitourinary: Denies: GERD, CRI, ESRD, other Neurologic/Psychiatric: Reports: depression/anxiety, Denies: dementia, CVA, TIA, other Endocrine: Denies: DM, hypothyroidism, steroids, other HEENT: Denies: cataract (L), cataract (R), glaucoma, [place] (L), [place] (R), other Hematology/Immune: Denies: anemia, DVT, bleeding disorder, other Musculoskeletal/Integumentary: Denies: OA, RA, DJD, DDD, edema, other PMH Narrative: HTN, ovarian CA, depression PSxH Narrative: C/S, DESTINI Anesthesia Pre-op Phys. Exam Physician Exam Last Vital Signs Date Time Temp Pulse Resp B/P (MAP) Pulse Ox O2 Delivery O2 Flow Rate FiO2 02/10/17 08:00 97.9 71 19 104/59 95 Room Air 02/09/17 19:41 21 02/07/17 20:02 2.0 Constitutional: NAD Neurologic: CN 2-12 intact Cardiovascular: RRR Respiratory: CTA Gastrointestinal: S/NT/ND Airway Exam Mallampati Score: Class II MO: full ROM: full Teeth: intact Anesthesia Pre-op A/P Labs Hematology Test 02/10/17 05:20 White Blood Count 10.9 K/UL (4.8-10.8) H Red Blood Count 2.61 M/UL (4.20-5.40) L Hemoglobin 8.5 G/DL (12.0-16.0) L Hematocrit 25.1 % (37.0-47.0) L Mean Corpuscular Volume 96 FL (80-99) Mean Corpuscular Hemoglobin 32.8 PG (27.0-31.0) H Mean Corpuscular Hemoglobin Concent 34.1 G/DL (32.0-36.0) Red Cell Distribution Width 11.8 % (11.6-14.8) Platelet Count 448 K/UL (150-450) Mean Platelet Volume 4.8 FL (6.5-10.1) L Neutrophils (%) (Auto) 74.1 % (45.0-75.0) Lymphocytes (%) (Auto) 13.6 % (20.0-45.0) L Monocytes (%) (Auto) 6.5 % (1.0-10.0) Eosinophils (%) (Auto) 5.1 % (0.0-3.0) H Basophils (%) (Auto) 0.7 % (0.0-2.0) Chemistry Test 02/10/17 05:20 Sodium Level 137 mEQ/L (135-145) Potassium Level 3.8 mEQ/L (3.4-4.9) Chloride Level 99 mEQ/L (98-107) Carbon Dioxide Level 24 mEQ/L (20-30) Anion Gap 14 (5-15) Blood Urea Nitrogen 12 mg/dL (7-23) Creatinine 1.1 mg/dL (0.5-0.9) H Estimat Glomerular Filtration Rate 49.9 mL/min (>60) Glucose Level 86 mg/dL (74-106) Calcium Level 9.5 mg/dL (8.6-10.2) Total Bilirubin < 0.2 mg/dL (0.0-1.2) Direct Bilirubin 0.1 mg/dL (0.1-0.3) Aspartate Amino Transf (AST/SGOT) 21 U/L (5-40) Alanine Aminotransferase (ALT/SGPT) 51 U/L (3-33) H Alkaline Phosphatase 196 U/L (35-104) H Total Protein 6.3 g/dL (6.6-8.7) L Albumin 3.0 g/dL (3.5-5.2) L Risk Assessment & Plan Assessment: Persistent cough for bronchoscopy Plan: GETA Status Change Before Surgery: Yes Pre-Antibiotics Drug: None LEODAN SHORT M.D. Feb 10, 2017 12:52
--- NOTE | 2017-02-10 12:54 | Immediate Post-Op Evaluation ---
Immediate Post-Op Evalulation Immediate Post-Op Evalulation Procedure: Bronchoscopy Date of Evaluation: Feb 10, 2017 Time of Evaluation: 12:55 IV Fluids: 100 Blood Pressure Systolic: 96 Blood Pressure Diastolic: 60 Pulse Rate: 73 Respiratory Rate: 20 O2 Sat by Pulse Oximetry: 97 Temperature (Fahrenheit): 98.4 Pain Score (1-10): 0 Nausea: No Vomiting: No Complications No complication Patient Status: awake, patent, extubated, none Hydration Status: adequate Drug: None LEODAN SHORT M.D. Feb 10, 2017 12:54
[2017-02-10] MEDS ORDERED: fentaNYL 100 mcg/2 mL IV PRN (13:00)
--- NOTE | 2017-02-10 14:34 | Infectious Diseases Prog Note ---
Assessment/Plan Assessment/Plan ASSESSMENT AND PLAN: 1. pna - ? etiology, ? cocci, ? cap, doubt mrsa or TB, elevated eosinophils on cbc diff., ? eosinophilic pna, ? other, hx of ovarian ca with mets - clinically without improvement - check serology - doxy, diflucan, zosyn - taper abx soon pending bronchoscopy - s/p bronchoscopy, check results - check labs and chest x-ray, elevated creatinine noted - mild increase in LFT's, check hepatitis panel, defers us abdomen , no abdominal pain 2. History of presumptive latent tuberculosis, status post INH x1 year per the patient. 3. The patient grew up in the [place]. 4. Hypertension. 5. Asymptomatic coronary artery disease. 6. Ovarian cancer with metastasis, status post chemotherapy and surgery, in remission. 7. Mildly elevated creatinine. 8. Depression. 9. No known allergies. 10. Social history is negative. 11. MAR was noted. 12. Case was discussed with RN. 13. Family history is noncontributory. 14. History of BCG vaccine. 15. Records were noted. 16. Continue treatment per Dr. Kaur. 17. D/w Dr. Kaur Subjective Constitutional: Reports: fatigue, Denies: fever HEENT: Denies: congestion Respiratory: Reports: dry cough, Denies: shortness of breath Cardiovascular: Denies: chest pain Gastrointestinal/Abdominal: Denies: nausea, vomiting, diarrhea Genitourinary: Reports: other - no nguyen, Denies: dysuria, hematuria Neurologic: Denies: headache, numbness Psychiatric: Reports: other - na Skin: Denies: rash Hematologic: Denies: bleeding Musculoskeletal: Denies: pain Allergies: Coded Allergies: No Known Allergies (Unverified , 02/06/17) Objective Vital Signs Last 24 Hour Vital Signs Date Time Temp Pulse Resp B/P (MAP) Pulse Ox O2 Delivery O2 Flow Rate FiO2 02/10/17 13:20 98.2 66 19 105/67 99 Nasal Cannula 3.0 02/10/17 13:20 Room Air 02/10/17 13:20 Room Air 02/10/17 13:10 66 16 100/68 99 Nasal Cannula 3.0 02/10/17 12:55 69 23 101/63 99 Nasal Cannula 3.0 02/10/17 12:54 73 20 97 02/10/17 12:50 70 17 103/68 99 Simple Mask 6.0 02/10/17 12:45 98.4 75 14 113/53 99 Simple Mask 6.0 02/10/17 08:00 97.9 71 19 104/59 95 Room Air 02/10/17 07:56 Room Air 02/10/17 07:55 Room Air 02/10/17 01:28 Room Air 02/10/17 01:27 Room Air 02/10/17 00:00 99.1 85 18 106/60 95 Room Air 02/09/17 20:00 97.8 78 18 127/69 96 Room Air 02/09/17 19:41 79 20 100 Room Air 21 02/09/17 19:30 77 20 98 Room Air 21 02/09/17 16:00 98.5 80 19 113/72 98 Room Air Height (Feet): 5 Height (Inches): 6.00 Weight (Pounds): 155 General Appearance: no acute distress HEENT: normocephalic, atraumatic, anicteric, mucous membranes moist, EOMI, pharynx normal, supple, no JVD Respiratory/Chest: lungs clear, normal breath sounds, no respiratory distress, no accessory muscle use Cardiovascular: normal rate, regular rhythm, no gallop/murmur, no JVD Abdomen: soft, non tender, no organomegaly, non distended Genitourinary: other - no nguyen Extremities: no cyanosis Skin: no rash, no ulcers Neurologic/Psychiatric: alert, oriented x 3, responsive Lymphatic: no neck adenopathy Musculoskeletal: no effusion Objective Chest x-ray: Impression: Acuity indeterminate ill-defined densities within the upper lobes. Findings could represent some ill-defined scarring of the lungs. Possibility of pneumonia not excluded. Please correlate clinically. Right chest port noted in good position. impression: Possibly slightly increased left upper lobe infiltrate, better visualized on recent CT scan. Otherwise little change. Chest x-ray: 02/10 Ct scan of the Chest: CT Dose Index Volume (CTDIvol): 0.15, 21.4 mGy Comparison: none Findings: Ill-defined infiltrates are present within the upper lobes suspicious for pneumonia. There is no interstitial fibrosis per se. There are some mild reticular densities at the lung bases nonspecific in nature. This could represent mild subsegmental atelectasis which is probably most likely. No pleural effusions are seen. There is no lymphadenopathy identified. There is a right chest port present. The tip terminates within the SVC in good position. Consultation of aorta and coronary calcifications are also noted. Visualized part of the upper abdomen is unremarkable. Impression: Patchy upper lobe infiltrates. Consider pneumonia. No interstitial fibrosis demonstrated. Mild atherosclerotic vascular disease Right chest port in good position Microbiology Date/Time Source Procedure Growth Status 02/10/17 12:35 Bronchial Washings Left Upper Lobe Received 02/10/17 12:35 Bronchial Washings Not Specified Received Laboratory Tests Test 02/10/17 05:20 02/10/17 09:15 White Blood Count 10.9 K/UL (4.8-10.8) H Red Blood Count 2.61 M/UL (4.20-5.40) L Hemoglobin 8.5 G/DL (12.0-16.0) L Hematocrit 25.1 % (37.0-47.0) L Mean Corpuscular Volume 96 FL (80-99) Mean Corpuscular Hemoglobin 32.8 PG (27.0-31.0) H Mean Corpuscular Hemoglobin Concent 34.1 G/DL (32.0-36.0) Red Cell Distribution Width 11.8 % (11.6-14.8) Platelet Count 448 K/UL (150-450) Mean Platelet Volume 4.8 FL (6.5-10.1) L Neutrophils (%) (Auto) 74.1 % (45.0-75.0) Lymphocytes (%) (Auto) 13.6 % (20.0-45.0) L Monocytes (%) (Auto) 6.5 % (1.0-10.0) Eosinophils (%) (Auto) 5.1 % (0.0-3.0) H Basophils (%) (Auto) 0.7 % (0.0-2.0) Sodium Level 137 mEQ/L (135-145) Potassium Level 3.8 mEQ/L (3.4-4.9) Chloride Level 99 mEQ/L (98-107) Carbon Dioxide Level 24 mEQ/L (20-30) Anion Gap 14 (5-15) Blood Urea Nitrogen 12 mg/dL (7-23) Creatinine 1.1 mg/dL (0.5-0.9) H Estimat Glomerular Filtration Rate 49.9 mL/min (>60) Glucose Level 86 mg/dL (74-106) Calcium Level 9.5 mg/dL (8.6-10.2) Total Bilirubin < 0.2 mg/dL (0.0-1.2) Direct Bilirubin 0.1 mg/dL (0.1-0.3) Aspartate Amino Transf (AST/SGOT) 21 U/L (5-40) Alanine Aminotransferase (ALT/SGPT) 51 U/L (3-33) H Alkaline Phosphatase 196 U/L (35-104) H Total Protein 6.3 g/dL (6.6-8.7) L Albumin 3.0 g/dL (3.5-5.2) L Hepatitis A IgM Antibody Pending Hepatitis B Surface Antigen Pending Hepatitis B Core IgM Antibody Pending Hepatitis C Antibody Pending TB Test (T-Spot) Pending TB Test Nil Control (T-Spot) Pending TB Test Panel A (T-Spot) Pending TB Test Panel B (T-Spot) Pending TB Test Positive Control (T-Spot) Pending Current Medications Medications (Trade) Dose Ordered Sig/Ki Route PRN Reason Start Time Stop Time Status Last Admin Dose Admin Albuterol/ Ipratropium (DuoNeb 0.5-3(2.5)mg/3ml) 3 ml Q6HRT HHN 02/06/17 19:00 02/11/17 18:59 02/09/17 19:40 Aripiprazole (Abilify) 10 mg DAILY ORAL 02/07/17 09:00 03/09/17 08:59 02/09/17 09:00 Doxycycline Monohydrate (Vibramycin) 100 mg EVERY 12 HOURS ORAL 02/08/17 21:00 02/15/17 20:59 02/09/17 21:58 Fentanyl Citrate (Sublimaze 100 mcg/2 mL) 25 mcg Q10M PRN IV Moderate Pain (Pain Scale 4-6) 02/10/17 13:00 02/10/17 19:00 Fluconazole (Diflucan) 400 mg DAILY ORAL 02/09/17 09:00 02/16/17 08:59 02/09/17 09:00 Hydrochlorothiazide (Hydrodiuril) 25 mg DAILY ORAL 02/07/17 09:00 03/09/17 08:59 Iron Sucrose 100 mg/Sodium Chloride 60 ml @ 240 mls/hr BEDTIME IV 02/07/17 21:00 02/11/17 21:14 02/09/17 21:04 Lactated Ringer's 1,000 ml @ 10 mls/hr Q24H IVLG 02/10/17 12:47 02/10/17 14:46 Losartan Potassium (Cozaar) 100 mg DAILY ORAL 02/07/17 09:00 03/09/17 08:59 Ondansetron HCl (Zofran) 4 mg Q1H PRN IVP Nausea & Vomiting 02/10/17 13:00 02/10/17 19:00 Patient Own Medication (Patient's Own Med) 1 ea BEDTIME ORAL 02/07/17 18:00 03/09/17 17:59 UNV Patient Own Medication (Patient's Own Med) 1 ea DAILY ORAL 02/07/17 10:00 03/09/17 09:59 02/09/17 09:00 Patient Own Medication (Patient's Own Med) 1 ea DAILYPRN PRN ORAL DEPRESSION 02/09/17 13:15 03/11/17 12:59 Patient Own Medication (Patient's Own Med) 2 ea QHS ORAL 02/07/17 21:00 03/09/17 20:59 02/09/17 21:58 Promethazine HCl/ Codeine (Phenergan with Codeine) 5 ml Q4H PRN ORAL For Cough 02/07/17 22:30 03/09/17 22:29 02/07/17 22:42 AKILAH WOODALL Feb 10, 2017 14:34
[2017-02-10] MEDS: Promethazine/Codeine 5ml UD ORAL PRN ×2 (16:03→20:25)
[2017-02-10] MEDS: Iron Sucrose 100 MG in NS 55 ML IV SCH (20:26)
[2017-02-10 21:15] LABS: MYCOPLASMA PNEUMONIAE AB IGG 314 U/mL (0-99); MYCOPLASMA PNEUMONIAE AB IGM <770 U/mL (0-769)
--- NOTE | 2017-02-10 22:00 | Operative Note - Dictated ---
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 She has no high fever, but has persistent cough and infiltrate seen on CT scanning. She does have stage IV ovarian cancer and has had chemotherapy. CONSENT: The nature of the procedure, the risks, benefits, and alternatives were described to the patient and all of her questions were answered. Her consent was obtained. Preoperative laboratory studies were satisfactory. DESCRIPTION OF THE PROCEDURE: The patient was given general anesthesia by Dr. Carney and was intubated by him. The Olympus fiber bronchoscope was passed through the endotracheal tube and the lower trachea and right and left lungs were examined. The right and left upper lobes were then entered in sequence and bronchoalveolar lavage was carried out using normal saline. Approximately 100 mL was instilled in total and approximately 20 mL returned. FINDINGS: There were no endobronchial lesions or abnormalities seen. SPECIMENS: The lavage specimen was sent to the laboratory for cultures including bacterial, fungal, acid-fast, and viral as well as cytology. POSTOPERATIVE CONDITION: The patient is presently being extubated and will be transported to the recovery room in satisfactory condition. COMPLICATIONS: None. Guru Kaur M.D. DR: WAN JOB#: [id number] CC: Scott Perry M.D.; Fax#: [phone] Kaur M.D. ; Fax#: [phone]
[2017-02-11] VITALS: BP 120/76
[2017-02-11] MEDS: Promethazine/Codeine 5ml UD ORAL PRN ×4 (00:32→20:16)
[2017-02-11] MEDS: DuoNeb 0.5-3(2.5)mg/3ml neb HHN SCH ×3 (01:00→13:00)
[2017-02-11 04:00] VITALS: BP 92/54
--- NOTE | 2017-02-11 07:11 | 48 Hour Post Anesthesia Eval ---
Post Anesthesia Evaluation Procedure: Bronchoscopy Date of Evaluation: Feb 11, 2017 Time of Evaluation: 06:34 Blood Pressure Systolic: 95 0: 54 Pulse Rate: 93 Respiratory Rate: 20 Temperature (Fahrenheit): 99.5 O2 Sat by Pulse Oximetry: 95 Airway: patent Nausea: No Vomiting: No Pain Intensity: 1 Hydration Status: adequate Cardiopulmonary Status: Stable Mental Status/LOC: patient returned to baseline Follow-up Care/Observations: 0 Post-Anesthesia Complications: 0 Follow-up care needed: N/A Vignesh Ivy MD Feb 11, 2017 07:11
--- NOTE | 2017-02-11 07:59 | Pulmonology Progress Note ---
Assessment/Plan Assessment/Plan 1. Pneumonia 2. Status post radical hysterectomy and chemotherapy for metastatic ovarian cancer, currently in remission. 3. Hypertension. 4. Coronary heart disease, asymptomatic. 5. Depression, controlled on medication. tolerated bronch with lavage disc w Dr Perry serologies neg for Legionella c/s neg so far anxious to go home if cultures neg may dc on abx soon might need surgical bx if no diagnosis on bronch Subjective Constitutional: Reports: fever - low grade Respiratory: Reports: dry cough Allergies: Coded Allergies: No Known Allergies (Unverified , 02/06/17) Objective Last 24 Hour Vital Signs Date Time Temp Pulse Resp B/P (MAP) Pulse Ox O2 Delivery O2 Flow Rate FiO2 02/11/17 07:11 93 20 95 02/11/17 04:00 99.5 93 20 92/54 95 Room Air 02/11/17 01:23 Room Air 02/11/17 01:22 Room Air 02/11/17 00:00 98.4 95 20 120/76 Room Air 02/10/17 20:00 98.1 80 19 126/74 100 Room Air 02/10/17 19:48 75 20 98 Room Air 02/10/17 19:38 78 20 98 Room Air 02/10/17 16:00 97.0 74 19 101/62 95 Room Air 02/10/17 13:20 98.2 66 19 105/67 99 Nasal Cannula 3.0 02/10/17 13:20 Room Air 02/10/17 13:20 Room Air 02/10/17 13:10 66 16 100/68 99 Nasal Cannula 3.0 02/10/17 12:55 69 23 101/63 99 Nasal Cannula 3.0 02/10/17 12:54 73 20 97 02/10/17 12:50 70 17 103/68 99 Simple Mask 6.0 02/10/17 12:45 98.4 75 14 113/53 99 Simple Mask 6.0 02/10/17 08:00 97.9 71 19 104/59 95 Room Air General Appearance: no acute distress HEENT: atraumatic Respiratory/Chest: lungs clear Cardiovascular: normal rate Microbiology Date/Time Source Procedure Growth Status 02/10/17 12:35 Bronchial Washings Left Upper Lobe Received 02/10/17 12:35 Bronchial Washings Not Specified Gram Stain Pending Resulted 02/10/17 12:35 Bronchial Washings Not Specified Bronchial Aspirate Culture - Preliminary NO GROWTH Resulted 02/10/17 12:35 Bronchial Washings Not Specified Anaerobic Culture Pending Resulted Laboratory Tests 02/10/17 09:15: Hepatitis A IgM Antibody Negative, Hepatitis B Surface Antigen Negative, Hepatitis B Core IgM Antibody Negative, Hepatitis C Antibody <0.1, TB Test (T- Spot) [Pending], TB Test Nil Control (T-Spot) [Pending], TB Test Panel A (T-Spot ) [Pending], TB Test Panel B (T-Spot) [Pending], TB Test Positive Control (T- Spot) [Pending] Current Medications Medications (Trade) Dose Ordered Sig/Ki Route PRN Reason Start Time Stop Time Status Last Admin Dose Admin Albuterol/ Ipratropium (DuoNeb 0.5-3(2.5)mg/3ml) 3 ml Q6HRT HHN 02/06/17 19:00 02/11/17 18:59 02/10/17 19:38 Aripiprazole (Abilify) 10 mg DAILY ORAL 02/11/17 09:00 03/13/17 08:59 Doxycycline Monohydrate (Vibramycin) 100 mg EVERY 12 HOURS ORAL 02/08/17 21:00 02/15/17 20:59 02/10/17 20:25 Fluconazole (Diflucan) 400 mg DAILY ORAL 02/09/17 09:00 02/16/17 08:59 02/09/17 09:00 Hydrochlorothiazide (Hydrodiuril) 25 mg DAILY ORAL 02/07/17 09:00 03/09/17 08:59 Iron Sucrose 100 mg/Sodium Chloride 60 ml @ 240 mls/hr BEDTIME IV 02/07/17 21:00 02/11/17 21:14 02/10/17 20:26 Losartan Potassium (Cozaar) 100 mg DAILY ORAL 02/07/17 09:00 03/09/17 08:59 Patient Own Medication (Patient's Own Med) 1 ea BEDTIME ORAL 02/07/17 18:00 03/09/17 17:59 UNV Patient Own Medication (Patient's Own Med) 1 ea DAILY ORAL 02/07/17 10:00 03/09/17 09:59 02/09/17 09:00 Patient Own Medication (Patient's Own Med) 1 ea DAILYPRN PRN ORAL DEPRESSION 02/09/17 13:15 03/11/17 12:59 Patient Own Medication (Patient's Own Med) 1.5 ea QHS ORAL 02/11/17 21:00 03/12/17 23:29 Piperacillin Sod/ Tazobactam Sod 3.375 gm/Dextrose 100 ml @ 25 mls/hr EVERY 8 HOURS IVPB 02/10/17 15:00 02/15/17 21:59 02/11/17 06:03 Promethazine HCl/ Codeine (Phenergan with Codeine) 5 ml Q4H PRN ORAL For Cough 02/07/17 22:30 03/09/17 22:29 02/11/17 00:32 MU LOPEZ Feb 11, 2017 07:59
[2017-02-11 08:00] VITALS: BP 87/55
[2017-02-11] MEDS: Losartan 50mg tab ORAL SCH (09:00)
[2017-02-11] MEDS: ARIPiprazole 10mg tab ORAL SCH (09:27)
[2017-02-11] MEDS: Fluconazole 100mg tab ORAL SCH (09:27)
[2017-02-11 12:00] VITALS: BP 124/61
[2017-02-11 16:00] VITALS: BP 105/65
[2017-02-11 20:00] VITALS: BP 130/83
[2017-02-11] MEDS: Iron Sucrose 100 MG in NS 55 ML IV SCH (20:15)
[2017-02-12 04:00] VITALS: BP 103/65
[2017-02-12 08:18] VITALS: BP 93/55
[2017-02-12] MEDS: Losartan 50mg tab ORAL SCH (09:00)
[2017-02-12] MEDS: Fluconazole 100mg tab ORAL SCH (09:16)
[2017-02-12] MEDS: ARIPiprazole 10mg tab ORAL SCH (09:16)
[2017-02-12] MEDS: Promethazine/Codeine 5ml UD ORAL PRN (09:25)
[2017-02-12 11:36] VITALS: BP 110/65
[2017-02-12] MEDS ORDERED: Tubing IV Secondary IV ONE (15:02)
[2017-02-12] MEDS ORDERED: NS 550ML IV ONE (15:02)
[2017-02-12] MEDS ORDERED: DOXYCYCLINE HY100 M2 ORAL (15:11)
[2017-02-12] MEDS ORDERED: AUGMENTIN 875-1 EAC1 ORAL (15:11)
[2017-02-12 15:45] VITALS: BP 114/71
--- NOTE | 2017-02-12 16:05 | Infectious Diseases Prog Note ---
Assessment/Plan Assessment/Plan ASSESSMENT AND PLAN: 1. pna - ? etiology, ? cocci, ? cap, doubt mrsa or TB, elevated eosinophils on cbc diff., ? eosinophilic pna, ? other, hx of ovarian ca with mets - mycoplasma igg +, igm negative, legionella urine antigen negative, cocci pending - clinically without significant improvement, still with cough - check final serology - doxy, diflucan, zosyn - s/p bronchoscopy, check results, culture so far negative, afb smear negative - check labs and chest x-ray, elevated creatinine noted - can discharge on oral augmentin plus doxycycline - f/u with Dr. Kaur as outpatient for f/u ct and further w/u 2. History of presumptive latent tuberculosis, status post INH x1 year per the patient. 3. The [place]. 4. Hypertension. 5. Asymptomatic coronary artery disease. 6. Ovarian cancer with metastasis, status post chemotherapy and surgery, in remission. 7. Mildly elevated creatinine. 8. Depression. 9. No known allergies. 10. Social history is negative. 11. MAR was noted. 12. Case was discussed with RN. 13. Family history is noncontributory. 14. History of BCG vaccine. 15. Records were noted. 16. Continue treatment per Dr. Kaur. 17. D/w Dr. Kaur Subjective Constitutional: Denies: fever Respiratory: Reports: dry cough - no change in cough, Denies: shortness of breath Cardiovascular: Denies: chest pain Gastrointestinal/Abdominal: Denies: nausea, vomiting, diarrhea Genitourinary: Reports: other - no nguyen Neurologic: Denies: headache Psychiatric: Denies: depression Skin: Denies: rash Hematologic: Denies: bleeding Musculoskeletal: Denies: pain Allergies: Coded Allergies: No Known Allergies (Unverified , 02/06/17) Objective Vital Signs Last 24 Hour Vital Signs Date Time Temp Pulse Resp B/P (MAP) Pulse Ox O2 Delivery O2 Flow Rate FiO2 02/12/17 15:45 97.1 69 20 114/71 97 Room Air 02/12/17 11:36 98.3 62 20 110/65 97 Room Air 02/12/17 09:00 93/55 02/12/17 08:18 98.6 70 20 93/55 95 Room Air 02/12/17 04:00 97.3 72 18 103/65 99 Room Air 02/11/17 20:00 97.3 72 18 130/83 95 Room Air 02/11/17 16:00 97.9 81 18 105/65 98 Room Air Height (Feet): 5 Height (Inches): 6.00 Weight (Pounds): 155 General Appearance: no acute distress HEENT: normocephalic, atraumatic, anicteric, mucous membranes moist, EOMI, pharynx normal, supple, no JVD Respiratory/Chest: lungs clear, normal breath sounds, no respiratory distress, no accessory muscle use Cardiovascular: normal rate, regular rhythm, no gallop/murmur, no JVD Abdomen: normal bowel sounds, soft, non tender, no organomegaly, non distended Genitourinary: other - no nguyen Extremities: no cyanosis Skin: no rash 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 Findings could represent some ill-defined scarring of the lungs. Possibility of pneumonia not excluded. Please correlate clinically. Right chest port noted in good position. impression: Possibly slightly increased left upper lobe infiltrate, better visualized on recent CT scan. Otherwise little change. Ct scan of the Chest: CT Dose Index Volume (CTDIvol): 0.15, 21.4 mGy Comparison: none Findings: Ill-defined infiltrates are present within the upper lobes suspicious for pneumonia. There is no interstitial fibrosis per se. There are some mild reticular densities at the lung bases nonspecific in nature. This could represent mild subsegmental atelectasis which is probably most likely. No pleural effusions are seen. There is no lymphadenopathy identified. There is a right chest port present. The tip terminates within the SVC in good position. Consultation of aorta and coronary calcifications are also noted. Visualized part of the upper abdomen is unremarkable. Impression: Patchy upper lobe infiltrates. Consider pneumonia. No interstitial fibrosis demonstrated. Mild atherosclerotic vascular disease Right chest port in good position Microbiology Date/Time Source Procedure Growth Status 02/10/17 12:35 Bronchial Washings Left Upper Lobe Received 02/10/17 12:35 Bronchial Washings Not Specified Gram Stain - Final Resulted 02/10/17 12:35 Bronchial Washings Not Specified Bronchial Aspirate Culture - Preliminary NO GROWTH AFTER 48 HOURS Resulted 02/10/17 12:35 Bronchial Washings Not Specified Anaerobic Culture - Preliminary NO GROWTH AFTER 48 HOURS Resulted 02/10/17 12:35 Lung Left Upper Lobe AFB Specimen Processing Tissue - Final Resulted 02/10/17 12:35 Lung Left Upper Lobe Acid Fast Bacilli Smear - Final Resulted 02/10/17 12:35 Lung Left Upper Lobe Acid Fast Bacilli Culture Pending Resulted Labs Test 02/10/17 05:20 02/10/17 09:15 White Blood Count 10.9 K/UL (4.8-10.8) Red Blood Count 2.61 M/UL (4.20-5.40) Hemoglobin 8.5 G/DL (12.0-16.0) Hematocrit 25.1 % (37.0-47.0) Mean Corpuscular Volume 96 FL (80-99) Mean Corpuscular Hemoglobin 32.8 PG (27.0-31.0) Mean Corpuscular Hemoglobin Concent 34.1 G/DL (32.0-36.0) Red Cell Distribution Width 11.8 % (11.6-14.8) Platelet Count 448 K/UL (150-450) Mean Platelet Volume 4.8 FL (6.5-10.1) Neutrophils (%) (Auto) 74.1 % (45.0-75.0) Lymphocytes (%) (Auto) 13.6 % (20.0-45.0) Monocytes (%) (Auto) 6.5 % (1.0-10.0) Eosinophils (%) (Auto) 5.1 % (0.0-3.0) Basophils (%) (Auto) 0.7 % (0.0-2.0) Sodium Level 137 mEQ/L (135-145) Potassium Level 3.8 mEQ/L (3.4-4.9) Chloride Level 99 mEQ/L (98-107) Carbon Dioxide Level 24 mEQ/L (20-30) Anion Gap 14 (5-15) Blood Urea Nitrogen 12 mg/dL (7-23) Creatinine 1.1 mg/dL (0.5-0.9) Estimat Glomerular Filtration Rate 49.9 mL/min (>60) Glucose Level 86 mg/dL (74-106) Calcium Level 9.5 mg/dL (8.6-10.2) Total Bilirubin < 0.2 mg/dL (0.0-1.2) Direct Bilirubin 0.1 mg/dL (0.1-0.3) Aspartate Amino Transf (AST/SGOT) 21 U/L (5-40) Alanine Aminotransferase (ALT/SGPT) 51 U/L (3-33) Alkaline Phosphatase 196 U/L (35-104) Total Protein 6.3 g/dL (6.6-8.7) Albumin 3.0 g/dL (3.5-5.2) Hepatitis A IgM Antibody Negative (Negative) Hepatitis B Surface Antigen Negative (Negative) Hepatitis B Core IgM Antibody Negative (Negative) Hepatitis C Antibody <0.1 s/co ratio Current Medications Medications (Trade) Dose Ordered Sig/Ki Route PRN Reason Start Time Stop Time Status Last Admin Dose Admin Al Hydroxide/Mg Hydroxide (Mylanta) 30 ml QIDPRN PRN ORAL Abdominal cramps 02/12/17 01:00 03/14/17 00:59 Aripiprazole (Abilify) 10 mg DAILY ORAL 02/11/17 09:00 03/13/17 08:59 02/12/17 09:16 Doxycycline Monohydrate (Vibramycin) 100 mg EVERY 12 HOURS ORAL 02/08/17 21:00 02/15/17 20:59 02/12/17 09:16 Fluconazole (Diflucan) 400 mg DAILY ORAL 02/09/17 09:00 02/16/17 08:59 02/12/17 09:16 Hydrochlorothiazide (Hydrodiuril) 25 mg DAILY ORAL 02/07/17 09:00 03/09/17 08:59 Losartan Potassium (Cozaar) 100 mg DAILY ORAL 02/07/17 09:00 03/09/17 08:59 Pantoprazole (Protonix) 40 mg QHS ORAL 02/11/17 21:30 03/13/17 21:29 02/11/17 21:47 Patient Own Medication (Patient's Own Med) 1 ea BEDTIME ORAL 02/07/17 18:00 03/09/17 17:59 UNV Patient Own Medication (Patient's Own Med) 1 ea DAILY ORAL 02/07/17 10:00 03/09/17 09:59 02/12/17 09:16 Patient Own Medication (Patient's Own Med) 1 ea DAILYPRN PRN ORAL DEPRESSION 02/09/17 13:15 03/11/17 12:59 Patient Own Medication (Patient's Own Med) 1.5 ea QHS ORAL 02/11/17 21:00 03/12/17 23:29 02/11/17 20:16 Piperacillin Sod/ Tazobactam Sod 3.375 gm/Dextrose 100 ml @ 25 mls/hr EVERY 8 HOURS IVPB 02/10/17 15:00 02/15/17 21:59 02/12/17 13:09 Promethazine HCl/ Codeine (Phenergan with Codeine) 5 ml Q4H PRN ORAL For Cough 02/07/17 22:30 03/09/17 22:29 02/12/17 09:25 AKILAH WOODALL Feb 12, 2017 16:05
--- NOTE | 2017-02-13 16:52 | Discharge Summary ---
Discharge Summary Hospital Course Date of Admission Feb 06, 2017 at 11:43 Date of Discharge Feb 12, 2017 at 18:25 Admitting Diagnosis pneumonia HPI Leigha Pastor is a 67 year old female who was admitted on Feb 06, 2017 at 11 :43 for Pneumonia Hospital Course [id number] Discharge Discharge Disposition Patient was discharged to Home (01) Discharge Diagnoses: Niesha Lopez NP Feb 13, 2017 16:52
--- NOTE | 2017-02-14 04:15 | Discharge Summary 2 SIG ---
DATE OF ADMISSION: 02/06/2017 DATE OF DISCHARGE: 02/12/2017 SUPERVISOR CELL ROOM: Jemma Torres M.D. BRIEF HOSPITAL COURSE: The patient is a 67-year-old female who presented to the hospital for evaluation of cough that has been ongoing for a week with high fever, resistant to oral antibiotics. She denied sputum production. There was no chest pain or shortness of breath. No hemoptysis. She had fever and chills every night despite being on oral antibiotics. She has taken Biaxin, ciprofloxacin, and Levaquin, but only took it for a couple of days each. She has history of ovarian CA, status post surgery and chemotherapy. On evaluation at the ED, chest x-ray done showed evidence of increased markings, possibly chronic or acute, possibly interstitial. She was admitted for pneumonia and abnormal chest x-ray findings. She was given oxygen and respiratory treatments and was followed by infectious disease specialist. A CT scan of the chest was done and showed patchy upper lobe infiltrates. She was initially given Zosyn and vancomycin, and clinically was without significant improvement. On 02/10/2017, she underwent bronchoscopy with bronchoalveolar lavage by Dr. Kaur. She tolerated the procedure well. Bronchial washings did not isolate any growth. Negative AFB. Mycoplasma serology was negative. Legionella urine antigen negative. Cocci pending. The patient was then cleared for discharge; to continue po Augmentin plus doxycycline. FINAL DIAGNOSES: 1. Pneumonia. 2. Status post radical hysterectomy and chemotherapy for metastatic ovarian cancer, currently in remission. 3. Hypertension. 4. Coronary heart disease. 5. Depression. PROCEDURE: Bronchoscopy. DISPOSITION: The patient was discharged home. DISCHARGE MEDICATIONS: Refer to med list. FOLLOWUP: Advised to follow up with PMD in a week. ACTIVITY: As tolerated. Guru Kaur M.D. I have been assigned to dictate discharge summary on this account and I was not involved in the patient's management. Niesha Lopez N.P. DR: PAOLO JOB#: [id number] CC: DAMON
== END 2017-02-12 18:25 | disposition home or self-care (01) | DRG 168 ==
LOC: EMR 11:23 → 4E 11:43 → EDBEDREQ 13:25 → 3E 23:45 → 4E 02-07 → 3E 02-07 11:11
PROC: 0B9C8ZX Drainage of Right Upper Lung Lobe, Via Natural or Artificial Opening Endoscopic, Diagnostic (ICD-10-PCS; principal; 2017-02-10 12:00)
PROC: 0B9G8ZX Drainage of Left Upper Lung Lobe, Via Natural or Artificial Opening Endoscopic, Diagnostic (ICD-10-PCS; principal; 2017-02-10 12:00)
DX: J18.9 Pneumonia, unspecified organism (principal); I10 Essential (primary) hypertension; I25.10 Atherosclerotic heart disease of native coronary artery without angina pectoris; F32.9 Major depressive disorder, single episode, unspecified; Z85.43 Personal history of malignant neoplasm of ovary; Z90.710 Acquired absence of both cervix and uterus; Z90.722 Acquired absence of ovaries, bilateral; Z86.11 Personal history of tuberculosis
CPT/HCPCS: 36415; 71010; 71250; 80048; 80053; 80061; 80076; 81003; 82164; 82550; 82728; 83540; 83550; 83880; 83970; 84443; 85025; 85610; 85730; 86635; 86705; 86709; 86738; 86803; 87040; 87070; 87075; 87116; 87205; 87340; 87449; 88104; 94003; 94150; 94640; 94664; 99285; J7620